=== PATIENT | male | born 1950 | race Caucasian/White ===

== ENCOUNTER → 2020-08-06 09:51 | Outpatient (BNVA) | payer MEDICARE, SELFPAY | PROVIDERS: Family Provider Family Medicine; Visit Provider Family Medicine | DX: E11.65 Type 2 diabetes mellitus with hyperglycemia (principal); Z23 Encounter for immunization; E11.9 Type 2 diabetes mellitus without complications; Z12.5 Encounter for screening for malignant neoplasm of prostate | CPT/HCPCS: 80061; 83036; 84439; 84443; 85025; G0103 ==

== ENCOUNTER → 2020-12-23 11:00 | Outpatient (BNVA) | payer MEDICARE, SELFPAY | PROVIDERS: Family Provider Family Medicine; Visit Provider Family Medicine | DX: I48.91 Unspecified atrial fibrillation (principal) | CPT/HCPCS: 71046 ==

== ENCOUNTER 2020-12-23 12:54 | Inpatient (IN) | payer MEDICARE, SELFPAY ==
[2020-12-23] VITALS (20 sets, daily range): BP systolic 120–163; BP diastolic 71–119; PULSE 81–126; RESP 16–27; TEMP 36.6–37.1; O2SAT 92–94; BMI 33.0
--- NOTE | 2020-12-23 13:22 | ECG_ITS ---
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 Measurements Intervals [place] Rate: 134 P: [place]: QRS: 59 QRSD: 82 T: 14 QT: 302 QTc: 452 Interpretive Statements ATRIAL FIBRILLATION WITH RAPID VENTRICULAR RESPONSE WITH ABERRANT CONDUCTION OR VENTRICULAR PREMATURE COMPLEXES NONSPECIFIC T-WAVE ABNORMALITY ABNORMAL RHYTHM ECG No previous ECG available for comparison Electronically Signed On 12-23-2020 23:58:28 CDT by Keenan Schroeder M.D. [id number]
--- NOTE | 2020-12-23 13:35 | W.ED.ARRPALP ---
HPI - Arrhythmia/Palpitations General: Chief Complaint: Arrhythmia/Palpitations Stated Complaint: SENT BY DR LEWIS - PT SPOUSE STATES AFIB Time Seen by Provider: 12/23/20 13:17 History of Present Illness: HPI narrative: 70-year-old male presents emergency room from his primary care doctor's office with new onset atrial fibrillation. He has been a little short of breath with activity the last couple of weeks but had not noticed any rapid heart rates palpitations or chest pain. MD complaint: atrial fibrillation Onset (ago): week(s) (3) Associated symptoms: Deny anxiety, cough, diaphoresis, muscle cramps, nausea, paresthesias, pre-syncope, sense of impending doom, short of breath, syncope or vomiting Review of Systems Const: Denies: diaphoresis ENMT: Denies: throat pain, ear or mastoid pain, nasal discharge or nasal congestion Card: Denies: syncope or pre-syncope Resp: Denies: dyspnea, productive cough or non-productive cough GI: Denies: nausea or vomiting : Denies: flank pain, dysuria, urinary frequency or urinary urgency Musc: Denies: muscle cramps Skin/Breast: Denies: rash or pruritus Psych: Denies: anxiety PFSH ED PFSH: Medical History (Updated 12/23/20 @ 20:38 by Steve Medrano MD) Diabetes mellitus Social History Smoking and tobacco status: former smoker Quit status (tobacco): has quit using tobacco Year quit tobacco: age 37 Alcohol intake: never Physical Exam Const: COMMON NORMALS: no acute distress GENERAL APPEARANCE: cooperative and comfortable ORIENTATION/CONSCIOUSNESS: Yes awake, Yes oriented to person, Yes oriented to place and Yes oriented to time HENMT: COMMON NORMALS: normocephalic, atraumatic and hearing grossly normal bilaterally HEAD & SCALP: normocephalic and atraumatic Neck/C-Spine: COMMON NORMALS: no JVD Resp: COMMON NORMALS: normal respiratory effort, No retractions, No use of accessory muscles and clear to auscultation bilaterally AUSCULTATION: clear to auscultation bilaterally Cardio: COMMON NORMALS: no JVD and No murmurs present (Cardio) RATE: tachycardic RHYTHM: abnormal rhythm irregularly irregular GI: COMMON NORMALS: Soft to palpation and No hepatosplenomegaly present AUSCULTATION: Yes normoactive bowel sounds PALPATION: Yes Soft to palpation, No Tenderness to palpation present (GI), No Guarding due to palpation present (GI) and Yes No hepatosplenomegaly present Extremity: COMMON NORMALS: normal to inspection, capillary refill normal, no clubbing, cyanosis or edema, no calf tenderness and no pedal edema Neuro: SENSORIUM/ORIENTATION: Yes oriented to person, Yes oriented to place and Yes oriented to time Skin: COMMON NORMALS: no rashes or lesions noted GENERAL SKIN EXAM: no rashes or lesions noted Course Vital Signs: Vital signs: Vital Signs Temperature 98.0 F 12/24/20 07:16 Pulse Rate 99 12/24/20 07:16 Respiratory Rate 24 H 12/24/20 07:16 Blood Pressure 149/98 12/24/20 07:16 Pulse Oximetry 92 12/24/20 07:16 MDM - Arrhythmia/Palpitations MDM Narrative: Medical decision making narrative: New onset A. fib. He is responsive to Cardizem. Will admit for rate control. He is currently on diltiazem but has not converted yet. Will need an echo and will need to be evaluated for anticoagulation. Cussed with Dr. Medrano orders are written. Admitted to CSU. Lab Data: Labs: Lab Results 12/23/20 Range/Units 13:33 Troponin T Baselin e 26 H (0-15) ng/L Discharge Plan Discharge Patient Disposition: Admitted As Inpatient Admit Provider: Steve Medrano Clinical Impression: Atrial fibrillation with rapid ventricular response Condition: Stable Coding Level of Care Code ED Clinical Trials Manager for Chg Fwd Exam Comprehensive
[2020-12-23 14:07] LABS: Troponin(5th) Baseline 26 ng/L (0-15)
--- NOTE | 2020-12-23 15:22 | ECG_ITS ---
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 Measurements Intervals [place] Rate: 88 P: ID: QRS: 29 QRSD: 84 T: 54 QT: 366 QTc: 443 Interpretive Statements ATRIAL FIBRILLATION NONSPECIFIC T-WAVE ABNORMALITY ABNORMAL RHYTHM ECG Compared to ECG 12/23/2020 13:05:54 Aberrant conduction of supraventricular beat(s) no longer present Ventricular premature complex(es) no longer present T-wave abnormality still present Electronically Signed On 12-24-2020 0:09:19 CDT by Keenan Schroeder M.D. [id number]
[2020-12-23 16:02] LABS: Troponin 5 2HR 24.28 ng/L (0-15)
[2020-12-23 16:04] LABS: Troponin 5 2HR Delta -1.72 ABS# (0-10)
--- NOTE | 2020-12-23 16:09 | PM.HP ---
Providers/Chief Complaint Admitting Physician: Steve Medrano MD Primary Care Provider: Trevin Lewis DO Chief Complaint: SENT BY DR LEWIS - PT SPOUSE STATES AFIB History of Present Illness Kerwin Leslie is a 70 year old male with PMH of HTN and DM came in with c/o worsening fatigue as well as SOB going on for about 2 weeks.SOB has got progressively worsened particularly with exertion.But he deny any orthopnea and PND. He denied any cough,fever,palpitation,nausea,vomiting chest pain,headache.He was at his pcp office today where they ended up doing an ekg,which showed new onset A,fib with RVR and thereafter he was sent to the ER.Upon arrival in the ER he was worked up for above mentioned complain. Pertinent work up : EKG : A. fib with RVR, NONSPECIFIC T-WAVE ABNORMALITY, Rate : 134 Xray chest : Cardiomegaly and bilateral pleural effusions Troponins :Baseline Troponin : 26, 2H T: 24.28 Delta 2h : -1.78 , 6H : 25.59 , Delta 6H : -0.41 TSH : FREE T4 : ECA Medications : Cardizem 20 mg I.V * 1 Dose , Cardizem Drip , Lovenox 120 mg sc * 1 Dose. Review of Systems Const: Denies: fever(s), chills, body aches, change in appetite or diaphoresis Card: Denies: palpitations, edema, swelling of feet/ankles or orthopnea Resp: Denies: productive cough, wheezing or pain on inspiration GI: Denies: abdominal pain, nausea, vomiting, diarrhea or constipation : Denies: flank pain or difficulty urinating Musc: Denies: back pain, extremity pain or extremity swelling Neuro: Denies: headache(s), difficulty walking or confusion Medications/Allergies Home Medications Medication Instructions Recorded Confirmed Last Taken Type amlodipine 10 mg PO DAILY@12/23/20 12/23/20 12/23/20 History glipizide 5 mg PO BID@12/23/20 12/23/20 12/23/20 History losartan-hydrochlorothiazide 1 tab PO DAILY@12/23/20 12/23/20 12/23/20 History metformin 1,000 mg PO BID@12/23/20 12/23/20 12/23/20 History omeprazole 20 mg PO DAILY@05 12/23/20 12/23/20 12/23/20 History Allergies Allergy/AdvReac Type Severity Reaction Status Date / Time No Known Allergies Allergy Verified 12/23/20 10:23 PFSH Acute PFSH: Medical History (Updated 12/23/20 @ 20:38 by Steve Medrano MD) Diabetes mellitus Social History Smoking and tobacco status: former smoker Quit status (tobacco): has quit using tobacco Year quit tobacco: age 37 Alcohol intake: never Vitals/I&O/Wt Last Vital Signs Temp 98.7 F 12/23/20 12:56 Pulse 115 H 12/23/20 15:38 Resp 20 H 12/23/20 15:38 BP 159/119 12/23/20 15:38 Pulse Ox 93 12/23/20 15:38 12/23/20 12/23/20 12/23/20 06:59 14:59 22:59 Intake Total 10.458 / 10.458 Balance 10.458 / 10.458 Weight last 48 hrs Weight 119.748 kg Physical Exam Const: COMMON NORMALS: patient oriented x3 HENMT: COMMON NORMALS: normocephalic and atraumatic HEAD & SCALP: normocephalic and atraumatic Resp: COMMON NORMALS: normal respiratory effort and clear to auscultation bilaterally EFFORT & INSPECTION: Yes symmetric chest movement AUSCULTATION: clear to auscultation bilaterally Cardio: PERIPHERAL PULSES: Peripheral pulses 2+ throughout OTHER: Irregularly Irregular, S1S2 is of variable intensity. No MRG. GI: COMMON NORMALS: Normal to inspection, nondistended, normoactive bowel sounds present, Soft to palpation, non-tender, No hepatosplenomegaly present and no masses AUSCULTATION: Yes normoactive bowel sounds PALPATION: Yes Soft to palpation and Yes No hepatosplenomegaly present RECTAL EXAM: Yes deferred Extremity: COMMON NORMALS: no clubbing, cyanosis or edema and no pedal edema NARRATIVE EXTREMITY EXAM: Varicose Vein Present Neuro: COMMON NORMALS: patient oriented x3 A&P Assessment and plan (1) Atrial fibrillation with rapid ventricular response: 2D Echo Tele TSH Lipid panel Currently On Cardizem Drip. Cardizem 30 mg po q6 h daily Lovenox 120 mg sc q12h Daily Status: Acute (2) Elevated troponin: Likely Type II M.I 2/2 to A.Fib with RVR 2D Echo Status: Acute (3) Congestive heart failure (CHF): Status: Acute (4) Diabetes mellitus: LDSSI FSG Hba1c Status: Acute (5) Hypertension: Status: Acute Additional A&P Information Code Status :Full Code DVT PPX :On Lovenox Disposition :Home Attestations Medical Necessity Statement*: Patient needs to be in hospital for the management of A.fib with RVR.Anticipated LOS greater then 2 midnights. Coding Level of Care Code Acute Journeyman Glazier for Chg Fwd Exam Detailed Diagnoses Atrial fibrillation with rapid ventricular response I48.91 Elevated troponin R77.8 Congestive heart failure (CHF) I50.9 Diabetes mellitus E11.9 Hypertension I10
[2020-12-23] MEDS: enoxaparin 120 mg/0.8 mL Syringe SUBCUT (16:29)
[2020-12-23 16:49] LABS: Glucose Point of Care 177 mg/dL (70-110)
[2020-12-23] MEDS: dilTIAZem 30 mg Tablet PO ×2 (17:05→21:52)
--- NOTE | 2020-12-23 19:22 | ECG_ITS ---
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 Measurements Intervals [place] Rate: 82 P: [place]: QRS: 17 QRSD: 87 T: 43 QT: 378 QTc: 443 Interpretive Statements ATRIAL FIBRILLATION ABNORMAL RHYTHM ECG Compared to ECG 12/23/2020 15:27:02 T-wave abnormality no longer present Electronically Signed On 12-25-2020 7:57:37 CDT by Cindy Arredondo M.D. [id number]
[2020-12-23 20:01] LABS: Troponin 5 6HR 25.59 ng/L (0-15); Troponin 5 6HR Delta -0.41 ng/L (0-12)
[2020-12-23 20:47] LABS: NT Pro B Type Natriuretic Pept 774 pg/mL (0-125)
[2020-12-23 20:53] LABS: Glucose Point of Care 160 mg/dL (70-110)
[2020-12-24] VITALS (10 sets, daily range): BP systolic 109–162; BP diastolic 80–108; PULSE 82–132; RESP 18–25; TEMP 36.3–36.9; O2SAT 90–95
[2020-12-24] MEDS: dilTIAZem 30 mg Tablet PO ×3 (04:51→10:28)
[2020-12-24] MEDS: pantoprazole DR 40 mg Tablet PO (04:51)
[2020-12-24] MEDS: enoxaparin 120 mg/0.8 mL Syringe SUBCUT ×2 (04:51→16:58)
[2020-12-24 05:00] LABS: Basophils % 0.4 %; Eosinophils # 0.3 10^3/uL (0.0-0.8); Eosinophils % 4.4 %; Hematocrit 39.2 % (42.0-52.0); Hemoglobin 12.8 g/dL (11.7-16.6); Lymphocytes # 1.9 10^3/uL (0.8-4.8); Lymphocytes % 32.8 %; Mean Corpuscular HGB Conc 32.7 g/dL (30.0-36.0); Mean Corpuscular Hemoglobin 28.4 pg (28.0-34.0); Mean Corpuscular Volume 87.1 fL (80-94); Mean Platelet Volume 10.6 fL (7.4-10.4); Monocytes # 0.7 10^3/uL (0.2-0.9); Monocytes % 12.2 %; Neutrophils # 2.83 10^3/uL (1.8-7.7); Neutrophils % 49.8 %; Nucleated Red Blood Cells % 0 %; Platelet Count 237 10^3/cmm (130-400); Red Cell Distribution Width 14.2 % (12.1-15.1); White Blood Count 5.7 10^3/uL (4.0-10.0)
--- NOTE | 2020-12-24 05:00 | USCV_ITS ---
Kerwin Leslie Age: 70 Gender: M : 1950 Exam Date: 12/24/2020 05:27 Ordering Phys: Yair Ludwig DO Technologist: Mita Morris Exam Location: [facility] [place] Indication: AFIB BP: 143 / 89 HR: 79 Rhythm: Atrial fibrillation Technical Quality: Adequate MEASUREMENTS (Male / Female) Normal Values 2D ECHO LV Diastolic Diameter PLAX 4.3 cm 4.2 - 5.9 / 3.9 - 5.3 cm LV Systolic Diameter PLAX 3.7 cm LV Chamber Size 3.7 cm IVS Diastolic Thickness 1.4 cm 0.6 - 1.0 / 0.6 - 0.9 cm IVS Systolic Thickness 1.6 cm LVPW Diastolic Thickness 1.6 cm 0.6 - 1.0 / 0.6 - 0.9 cm LVPW Systolic Thickness 1.7 cm RV Chamber Size 3.5 cm LVOT Diameter 2.0 cm LV Ejection Fraction 2D Teich 32.9 % LV Ejection Fraction MOD 2C 52.3 % LV Ejection Fraction 2C AL 56.5 % LA Diameter 4.3 cm LA Width 3.9 cm LA Height 6.5 cm RA Width 3.6 cm RA Height 4.2 cm Aorta at Sinotubular Diameter 3.8 cm M-MODE LV Diastolic Diameter MM 5.2 cm 4.2 - 5.9 / 3.9 - 5.3 cm LV Systolic Diameter MM 3.8 cm LV Ejection Fraction MM Teich 51.0 % IVS Diastolic Thickness MM 1.2 cm 0.6 - 1.0 / 0.6 - 0.9 cm IVS Systolic Thickness MM 1.6 cm LVPW Diastolic Thickness MM 1.2 cm 0.6 - 1.0 / 0.6 - 0.9 cm LVPW Systolic Thickness MM 1.5 cm RV Diastolic Diameter MM 2.6 cm Aortic Annulus Diameter 4.0 cm LA Ao Ratio MM 1.2 MV E Point Septal Separation 1.0 cm DOPPLER AV Peak Velocity 115.6 cm/s LVOT Peak Velocity 76.7 cm/s AV Area Cont Eq vti 2.0 cm squared AV Area Cont Eq pk 2.1 cm squared MV Area PHT 4.6 cm squared Mitral E to A Ratio 68.2 MV E' Velocity 66.6 cm/s Mitral E to MV E' Ratio 11.9 Mitral E to LV E' Lateral Ratio 11.7 Mitral E to LV E' Septal Ratio 12.2 TR Peak Velocity 187.6 cm/s TR Peak Gradient 14.1 mmHg TR Mean Velocity 134.7 cm/s TR Mean Gradient 8.1 mmHg TR Velocity Time Integral 40.2 cm TV Peak E Velocity 71.9 cm/s Right Atrial Pressure 3.0 mmHg Pulmonary Artery Systolic Pressu 17.1 mmHg PV Peak Velocity 75.0 cm/s RV Acceleration Time 0.1 s RV Ejection Time 0.3 s RV AcT/ET 0.3 FINDINGS Left Ventricle Normal left ventricular cavity size. Normal left ventricular wall thickness. Mildly decreased left ventricular systolic function. Left ventricular ejection fraction is estimated at 45- 50 %. Mild global hypokinesis. Rhythm precludes evaluation of diastolic function. Right Ventricle Normal right ventricular size and systolic function. Right ventricular systolic pressure 17.1 mmHg. Right Atrium Normal right atrial size. Left Atrium Mildly increased left atrial size. Mitral Valve Mild mitral annular calcification. Mildly thickened mitral valve. No mitral valve stenosis. Mild mitral valve regurgitation. Aortic Valve Mildly thickened trileaflet aortic valve. No aortic valve stenosis. No aortic valve regurgitation. Tricuspid Valve Structurally normal tricuspid valve. No tricuspid valve stenosis. Trace to mild tricuspid valve regurgitation. Pulmonic Valve Pulmonic valve not well visualized. No pulmonary valve regurgitation. Pericardium No pericardial effusion. Aorta Normal-sized aortic root. Dilated inferior vena cava. Echogenic structure noted in inferior vena cava seems to be artifactual. CONCLUSIONS 1. Normal left ventricular cavity size, wall thickness. Mildly decreased left ventricular systolic function. Left ventricular ejection fraction is estimated at 45-50 %. Mild global hypokinesis. 2. Normal right ventricular size and systolic function. 3. Mild mitral valve regurgitation. 4. No prior similar studies to compare Cindy Arredondo MD (Electronically Signed) Final Date: 24 December 2020 17:49 S
[2020-12-24 05:24] LABS: NT Pro B Type Natriuretic Pept 629 pg/mL (0-125); Procalcitonin 0.04 ng/mL (0-0.5)
[2020-12-24 05:25] LABS: Magnesium 1.4 mg/dL (1.7-2.3)
[2020-12-24 05:26] LABS: Alanine Aminotransferase 51 U/L (0-41); Albumin Level 3.9 g/dL (3.5-5.2); Alkaline Phosphatase 28 IU/L (40-130); Anion Gap 15.5 (5-19); Aspartate Amino Transferase 26 U/L (0-40); Blood Urea Nitrogen 15 mg/dL (8-23); Calcium 9.2 mg/dL (8.5-10.5); Carbon Dioxide 24 mmol/L (22-29); Chloride 103 mmol/L (98-107); Creatinine Clr Calc Pharmacy 116.4018; Glucose 163 mg/dL (65-115); Osmolality Calculated 292 mOsm/kg (285-295); Potassium 3.5 mmol/L (3.5-5.1); Sodium 139 mmol/L (136-145); Total Bilirubin 0.9 mg/dL (0.15-1.2); Total Protein 5.9 g/dL (6.6-8.7)
[2020-12-24 06:13] LABS: Estmated Average Glucose 146; Hemoglobin A1C 6.7 % (4.0-6.0)
[2020-12-24 06:38] LABS: Glucose Point of Care 165 mg/dL (70-110)
--- NOTE | 2020-12-24 08:55 | PC.CHAP ---
Pastoral Care Encounter/Spiritual Assessment Type of Contact [] Declined president and chief operating officer visit [] Patient/Family/Request visit [] Outpatient visit [] Follow-up visit [] Physician referral [] Code/Alert [x] Routine visit [] Staff referral [] Actively dying [] Patient sleeping [x] Family support [] [] Out of room [] Palliative care [] [] Receiving care in room [] Pre-surgical visit [] Trauma [] Long length of stay [] ICU visit [] Other: Relational/Emotional Strength [] Patient feels connected with others/family/visitors/staff [] Distress [] Loneliness/isolation [] Abandonment Spirituality of Patient [x] Person of Faina [] Attends Amish of their Faina [] Believes in Prayer [] Reads Bible or Jainism materials [] There are Spiritual issues to be addressed Helpdesk Technician Interventions [x] Prayer [x] Active listening [x] Non-anxious presence [x] Spiritual/emotional support [] Crisis/trauma care [] Spiritual counseling [] Bereavement support [] Provided bereavement packet [] Provided Bible/devotional materials [] Provided toy/stuffed animal, coloring book to patient or family member [] Provided Communion [] Anointing/Debary [] Salvation [x] Completed spiritual assessment [] Other: Impact on Illness or Injury [] Angry [] Fearful [] Anxious [] Often cries [] Exhaustion [] Unable to work [] Unable to attend uatsdin [] Unable to walk/stand [] Unable to read [] Unable to drive [] Unable to eat/drink [] Unable to sleep [] Unable to be with family [] Patient intubated [] Other: Summary patient states issue of afib being addressed.. spouse stayed the night setting in a chair....jeanie, eager to return home. Time spent with patient 15 min
[2020-12-24] MEDS: FUROsemide 10 mg/mL SDV 4mL 40 MG IVP ×2 (09:20→17:45)
[2020-12-24] MEDS: hydroCHLOROthiazide 25 mg Tablet PO (09:24)
[2020-12-24] MEDS: losartan 50 mg Tablet 100 MG PO (09:24)
[2020-12-24] MEDS: pneumococcal (23 valent) SDV 0.5 mL IM (09:26)
--- NOTE | 2020-12-24 09:30 | PC.NURSE ---
Verbal order from Dr. Medrano to keily Cardizem gtt. Give an additional 30 mg PO Cardizem one time, increase scheduled dose to 60 mg. RBVO
--- NOTE | 2020-12-24 10:09 | P.CONIM_ITS ---
Providers/Reason For Consult Consulting Physican/Specialty*: Dr. Arredondo, cardiology Reason for Consult*: Atrial fibrillation with rapid ventricle response, congestive heart failure Attending Physician: Steve Medrano MD Primary Care Provider: Trevin Veliz DO History of Present Illness History of Present Illness Kerwin Leslie is a 70 year old male with past medical history of hypertension, diabetes mellitus type 2 on oral hypoglycemic agents and obesity presented for evaluation of worsening shortness of breath for last 2 to 3 weeks. 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 He denies having any leg swelling orthopnea or PND. No fever cough URI or UTI-like symptoms. Patient denies having any chest discomfort. Patient is a former smoker and has family history of CAD and older brother with three-vessel bypass in atrial fibrillation at age 74 and sudden in father in his 60s. On admission he received IV Lasix for pulmonary congestion and was started on Cardizem drip. At the time of evaluation patient denies having any episodes. Heart rate 100-110's. Patient was accompanied by his and expresses the desire to go home. Review of Systems General: Reports: 10 or more systems reviewed and unremarkable except in HPI and below Const: Denies: fever(s), chills, body aches, change in appetite or diaphoresis ENMT: Denies: epistaxis Card: Denies: palpitations, edema, swelling of feet/ankles or orthopnea Resp: Denies: productive cough, wheezing or pain on inspiration GI: Denies: abdominal pain, nausea, vomiting, diarrhea or constipation : Denies: flank pain or difficulty urinating Musc: Denies: back pain, extremity pain or extremity swelling Neuro: Denies: headache(s), difficulty walking or confusion Endo: Reports: tired all the time Eloy/Lymph: Denies: petechiae or purpura Meds/Allergies Home Medications and Allergies Home Medications Medication Instructions Recorded Confirmed Last Taken Type amlodipine 10 mg PO DAILY@12/23/20 12/23/20 12/23/20 History glipizide 5 mg PO BID@,12/23/20 12/23/20 12/23/20 History losartan-hydrochlorothiazide 1 tab PO DAILY@12/23/20 12/23/20 12/23/20 History metformin 1,000 mg PO BID@,12/23/20 12/23/20 12/23/20 History omeprazole 20 mg PO DAILY@05 12/23/20 12/23/20 12/23/20 History Allergies Allergy/AdvReac Type Severity Reaction Status Date / Time No Known Allergies Allergy Verified 12/23/20 10:23 Current Medications Current Medications Generic Name Dose Route Start Last Admin Trade Name Freq PRN Reason Stop Dose Admin Enoxaparin Sodium 120 mg 12/24/20 05:00 12/24/20 04:51 Enoxaparin 120 Mg/0.8 Ml Syringe SUBCUT 120 mg Q12H LIZ Administration Furosemide 40 mg 12/24/20 08:00 12/24/20 09:20 Furosemide 10 Mg/Ml Sdv 4ml IVP 40 mg Q24H LIZ Administration Hydrochlorothiazide 25 mg 12/24/20 09:00 12/24/20 09:24 Hydrochlorothiazide 25 Mg Tablet PO 25 mg DAILY LIZ Administration Diltiazem HCl 125 mg/ Sodium 125 mls @ 0 mls/hr 12/23/20 13:45 12/24/20 09:19 Chloride IV Infused .Q0M LIZ Titration Protocol Per Protocol Insulin Aspart 0 unit 12/23/20 18:00 12/24/20 09:24 Insulin Aspart 100 Unit/1 Ml SUBCUT 2 unit WM&BEDTIME LIZ Administration Protocol Losartan Potassium 100 mg 12/24/20 09:00 12/24/20 09:24 Losartan 50 Mg Tablet PO 100 mg DAILY LIZ Administration Pantoprazole Sodium 40 mg 12/24/20 05:00 12/24/20 04:[address] 40 Mg Tablet PO 40 mg DAILY@05 LIZ Administration PFSH Acute PFSH: Medical History Diabetes mellitus Surgical History (Updated 12/24/20 @ 18:24 by Cindy Arredondo MD) History of ear surgery right Previous back surgery lower Social History Smoking and tobacco status: former smoker Quit status (tobacco): has quit using tobacco Year quit tobacco: age 37 Alcohol intake: never Vitals/I&O/Wt Last Vital Signs Temp 98.0 F 12/24/20 07:16 Pulse 99 12/24/20 07:16 Resp 24 H 12/24/20 07:16 BP 125/97 12/24/20 09:24 Pulse Ox 92 12/24/20 07:16 12/23/20 12/24/20 12/24/20 22:59 06:59 14:59 Intake Total 518.125 / 518.125 150 / 668.125 312.946 / 312.946 Balance 518.125 / 518.125 150 / 668.125 312.946 / 312.946 Weight last 48 hrs Weight 259 lb Weight 264 lb Physical Exam Narrative: EXAM NARRATIVE: GENERAL: Obese man lying in bed in no acute distress HEENT: Pupils equal round reactive to light. No pallor or icterus. NECK: central trachea, No JVD, No abdominojugular reflex. No carotid bruit. CARDIOVASCULAR SYSTEM: S1-S2 irregular. Tachycardia present . No murmur rubs or gallops. RESPIRATORY SYSTEM: Chest clear to auscultation. No wheezes rhonchi or rubs heard. No use of accessory muscles. ABDOMEN: Soft, nontender and nondistended. Normal bowel sounds present. EXTREMITIES: No cyanosis or clubbing. No right-sidededema. Left foot and ankle trace edema and mild varicosities, 2+ dorsalis pedis and posterior tibial bilaterally MOLDING FITTER: Patient is alert oriented ?3. No focal neurological deficits. Cranial nerves intact. SKIN: Normal turgor and temperature. No breakdown, rash or nail changes noted. PSYCH: Normal insight and judgment. A&P Assessment and plan (1) Dyspnea on exertion: Dyspnea on exertion in setting of mildly decompensated CHF and A. fib with RVR -Multiple CAD risk factor of age, sex, hypertension, diabetes. -May consider stress testing before discharge. Status: Acute (2) Congestive heart failure (CHF): Acute heart failure with midrange EF -Another dose of Lasix 40 mg IV x1 today, change to p.o. Lasix tomorrow Status: Acute Qualifiers: Heart failure chronicity: acute Heart failure type: unspecified Qualified Code(s): I50.9 - Heart failure, unspecified (3) Atrial fibrillation: A. fib with RVR. -Start on metoprolol tartrate 100 twice daily, currently on therapeutic Lovenox. -Mildly decreased LV function with ejection fraction estimated at 45 to 50%. Status: Acute Qualifiers: Atrial fibrillation type: persistent (not longstanding) Qualified Code(s): I48.19 - Other persistent atrial fibrillation (4) Hypertension: Status: Acute Qualifiers: Hypertension type: essential hypertension Qualified Code(s): I10 - Essential (primary) hypertension (5) Elevated troponin: Status: Acute (6) Diabetes mellitus: Status: Acute Qualifiers: Diabetes mellitus type: type 2 Diabetes mellitus assisted insulin use: without assisted use Diabetes mellitus complication status: without complication Qualified Code(s): E11.9 - Type 2 diabetes mellitus without complications Additional A&P Information Hypomagnesemia Thank you for allowing me to participate in patient's care. Please feel free to call with questions or concerns. Consult Attestations Medical Necessity Statement: Needs hospital stay for A. fib with RVR Time Spent in Patient Care: Greater than 35 minutes (>than 50% of time spent in counselling and/or direct pt care on unit) . Coding Level of Care Code Acute Environment Coordinator for Richag Fwd Diagnoses Dyspnea on exertion R06.00 Congestive heart failure (CHF) I50.9 Heart failure chronicity: acute Heart failure type: unspecified Atrial fibrillation I48.19 Atrial fibrillation type: persistent (not longstanding) Hypertension I10 Hypertension type: essential hypertension Elevated troponin R77.8 Diabetes mellitus E11.9 Diabetes mellitus type: type 2 Diabetes mellitus assisted insulin use: without middle or intermediate school principal use Diabetes mellitus complication status: without complication
--- NOTE | 2020-12-24 10:26 | P.PN_ITS ---
Subjective Subjective: Interval history: Patient was seen and examined this morning. Denies any chest pain, shortness of breath. Continues to be in A. fib with better rate control. Vitals/I&O/Wt Last Vital Signs Temp 98.0 F 12/24/20 07:16 Pulse 99 12/24/20 07:16 Resp 24 H 12/24/20 07:16 BP 125/97 12/24/20 09:24 Pulse Ox 92 12/24/20 07:16 12/23/20 12/24/20 12/24/20 22:59 06:59 14:59 Intake Total 518.125 / 518.125 150 / 668.125 312.946 / 312.946 Balance 518.125 / 518.125 150 / 668.125 312.946 / 312.946 Weight last 48 hrs Weight 117.48 kg Weight 119.748 kg Physical Exam Const: COMMON NORMALS: patient oriented x3 HENMT: COMMON NORMALS: normocephalic and atraumatic HEAD & SCALP: normocephalic and atraumatic Resp: COMMON NORMALS: normal respiratory effort and clear to auscultation bilaterally EFFORT & INSPECTION: Yes symmetric chest movement AUSCULTATION: clear to auscultation bilaterally Cardio: COMMON NORMALS: Peripheral pulses 2+ throughout PERIPHERAL PULSES: Peripheral pulses 2+ throughout OTHER: Irregularly Irregular, S1S2 is of variable intensity. No MRG. GI: COMMON NORMALS: Normal to inspection, nondistended, normoactive bowel sounds present, Soft to palpation, non-tender, No hepatosplenomegaly present and no masses AUSCULTATION: Yes normoactive bowel sounds PALPATION: Yes Soft to palpation and Yes No hepatosplenomegaly present RECTAL EXAM: Yes deferred Extremity: COMMON NORMALS: no clubbing, cyanosis or edema and no pedal edema NARRATIVE EXTREMITY EXAM: Varicose Vein Present Neuro: COMMON NORMALS: patient oriented x3 Data : 12/24/20 04:45 12/24/20 04:45 A&P Assessment and plan (1) Atrial fibrillation with rapid ventricular response: 2D Echo: Normal left ventricular cavity size, wall thickness.Mildly decreased left ventricular systolic function. Left ventricular ejection fraction is estimated at 45-50 %. Mild global hypokinesis.Normal right ventricular size and systolic function. Mild mitral valve regurgitation. Tele: TSH Lipid panel Initially he was On Cardizem Drip. Currently on Cardizem 60 mg po q6 h daily. On Metoprolol T 100 MG Q12 H Daily as he has HFrEF Lovenox 120 mg sc q12h Daily, will switch to eliquis on discharge. Appreciate Cardiology consult Status: Acute (2) Elevated troponin: Likely Type II M.I 2/2 to A.Fib with RVR 2D Echo Status: Acute (3) Congestive heart failure (CHF): HFrEF Continue Lasix 40 mg PO daily Status: Acute (4) Diabetes mellitus: LDSSI FSG Hba1c :6.7 Status: Acute (5) Hypertension: Status: Acute Additional A&P Information Code Status :Full Code DVT PPX :On Lovenox Disposition :Home Attestations Medical Necessity Statement*: Patient needs to be in hospital for the management of A.fib with RVR Coding Level of Care Code Acute Concrete Block Plant Supervisor for Chg Fwd Exam Detailed Diagnoses Atrial fibrillation with rapid ventricular response I48.91 Elevated troponin R77.8 Congestive heart failure (CHF) I50.9 Diabetes mellitus E11.9 Hypertension I10
[2020-12-24] MEDS: magnesium sulfate premix 2 GM/50 ML PIGGYBACK IV (10:28)
[2020-12-24 11:39] LABS: Glucose Point of Care 140 mg/dL (70-110)
[2020-12-24 16:52] LABS: Glucose Point of Care 160 mg/dL (70-110)
[2020-12-24] MEDS: dilTIAZem 60 mg Tablet PO (16:58)
[2020-12-24] MEDS: potassium chloride ER 20 mEq Tablet PO (17:47)
--- NOTE | 2020-12-24 18:29 | ECG_ITS ---
[facility] Test Date: 2020-12-25 Pat Name: Kerwin Leslie Department: Room: 107 Gender: Male Barrel Driller: : 1950 Requested By: Cindy Arredondo Order Number: [id number] Konrad MD: Cindy Arredondo M.D. Interpretive Statements NAME OF STUDY: LEXISCAN SESTAMIBI STRESS TEST INDICATION: Dyspnea on Exertion; A Fib PROCEDURE: At the baseline, the blood pressure was 116/94 mmHg, oxygen saturation 96% with a heart rate of 113 bpm. The electrocardiogram showed atrial fibrillation with rapid ventricular response at 113 bpm with intermittent aberrantly conducted beats/PVCs. Possible old anteroseptal infarct. Nonspecific ST-T wave changes. The Lexiscan was infused over a period of 20 seconds. A total of 0.4 milligrams of Lexiscan was infused. The stress phase was continued for a total of 5 minutes. Heart rate at the end of the stress phase was 103 bpm, oxygen saturation 91% with a blood pressure of 209/100 mmHg. The EKG at the peak infusion revealed atrial fibrillation with rapid regular response with no significant ST-T wave changes. Sestamibi was injected 20 seconds after the Lexiscan infusion. Blood pressure at the end of the recovery phase was 122/72 mmHg, oxygen saturation 90% with a heart rate of 107 beats per minute. CONCLUSION: 1. No significant EKG changes with the LexiScan infusion. 2. No LexiScan induced chest pain or cardiac arrhythmia. 3. Normal blood pressure and heart rate response. 4. Sestamibi/sestamibi perfusion scan pending; see separate report. Electronically Signed On 12-25-2020 16:30:22 CDT by Cindy Arredondo M.D. [id number]
[2020-12-24 20:47] LABS: Glucose Point of Care 189 mg/dL (70-110)
[2020-12-24] MEDS: metoprolol tartrate 50 mg Tablet 100 MG PO (20:50)
[2020-12-25] VITALS (12 sets, daily range): BP systolic 116–143; BP diastolic 72–106; PULSE 92–130; RESP 17–26; TEMP 36.2–36.8; O2SAT 90–93
[2020-12-25 04:52] LABS: Basophils % 0.5 %; Eosinophils # 0.3 10^3/uL (0.0-0.8); Eosinophils % 4.5 %; Hematocrit 42.3 % (42.0-52.0); Lymphocytes % 31.9 %; Mean Corpuscular HGB Conc 33.1 g/dL (30.0-36.0); Mean Corpuscular Hemoglobin 28.9 pg (28.0-34.0); Mean Corpuscular Volume 87.4 fL (80-94); Monocytes # 0.8 10^3/uL (0.2-0.9); Monocytes % 12.1 %; Neutrophils # 3.18 10^3/uL (1.8-7.7); Neutrophils % 50.8 %; Nucleated Red Blood Cells % 0 %; Platelet Count 252 10^3/cmm (130-400); Red Blood Count 4.84 10^6/uL (4.1-5.3); Red Cell Distribution Width 14.1 % (12.1-15.1); White Blood Count 6.3 10^3/uL (4.0-10.0)
[2020-12-25 05:06] LABS: Alanine Aminotransferase 61 U/L (0-41); Albumin Level 3.9 g/dL (3.5-5.2); Alkaline Phosphatase 32 IU/L (40-130); Anion Gap 13.3 (5-19); Aspartate Amino Transferase 29 U/L (0-40); Blood Urea Nitrogen 16 mg/dL (8-23); Calcium 8.7 mg/dL (8.5-10.5); Carbon Dioxide 28 mmol/L (22-29); Chloride 103 mmol/L (98-107); Creatinine Clr Calc Pharmacy 92.4362; Globulin 2.6 g/dL (1.3-4.6); Glucose 154 mg/dL (65-115); Osmolality Calculated 296 mOsm/kg (285-295); Potassium 3.3 mmol/L (3.5-5.1); Sodium 141 mmol/L (136-145); Total Bilirubin 0.6 mg/dL (0.15-1.2); Total Protein 6.5 g/dL (6.6-8.7)
[2020-12-25 05:15] LABS: Free T4 Free Thyroxine 1.28 ng/dL (0.82-1.77)
[2020-12-25 05:16] LABS: Thyroid Stimulating Hormone 3.32 uIU/mL (0.27-4.20)
[2020-12-25] MEDS: enoxaparin 120 mg/0.8 mL Syringe SUBCUT ×2 (05:43→17:36)
[2020-12-25] MEDS: pantoprazole DR 40 mg Tablet PO (05:43)
[2020-12-25 06:37] LABS: Glucose Point of Care 153 mg/dL (70-110)
[2020-12-25] MEDS: metoprolol tartrate 50 mg Tablet 100 MG PO ×2 (07:38→20:09)
[2020-12-25] MEDS: metoprolol tartrate 25 mg Tablet PO (08:05)
[2020-12-25] MEDS: hydroCHLOROthiazide 25 mg Tablet PO (09:51)
[2020-12-25] MEDS: losartan 50 mg Tablet 100 MG PO (09:51)
[2020-12-25 11:31] LABS: Glucose Point of Care 152 mg/dL (70-110)
--- NOTE | 2020-12-25 13:47 | SUR.PREOP ---
Patient reports no pain or discomfort prior to the start of the procedure.
[2020-12-25] MEDS: regadenoson 0.4 Mg/5 ml Syringe IVP (13:49)
--- NOTE | 2020-12-25 15:22 | PC.NURSE ---
pt finished with cardiac stress test at 1430.tolerated procedure well.a.m. lasix was held until after test.lasix given,along with cardizem and potassium at this time.hr remains elevated 100-130's (afib).bp stable.dr mookie richard aware.
[2020-12-25] MEDS: potassium chloride ER 20 mEq Tablet 40 MEQ PO (15:26)
[2020-12-25] MEDS: dilTIAZem 30 mg Tablet PO ×2 (15:27→20:09)
[2020-12-25] MEDS: FUROsemide 40 mg Tablet PO (15:27)
--- NOTE | 2020-12-25 15:29 | PC.NURSE ---
cardizem,potassium and lasix not scanned..computers were done at the time.
[2020-12-25 16:46] LABS: Glucose Point of Care 240 mg/dL (70-110)
--- NOTE | 2020-12-25 17:46 | PM.PN ---
Subjective Subjective: Interval history: Patient continues to remain in A. fib, heart rate, has remained in upper upper 90s to 110. Patient underwent stress test today. Said he only slept only few hours last night. Medications: Reviewed: Yes Vitals/I&O/Wt Last Vital Signs Temp 98.0 F 12/25/20 16:00 Pulse 122 H 12/25/20 16:00 Resp 26 H 12/25/20 16:00 BP 127/106 12/25/20 16:00 Pulse Ox 91 12/25/20 16:00 12/25/20 12/25/20 12/25/20 06:59 14:59 22:59 Intake Total 630 / 1472.946 480 / 480 480 / 960 Balance 630 / 647.946 480 / 480 480 / 960 Weight last 48 hrs Weight 117.934 kg Weight 117.48 kg Physical Exam Const: COMMON NORMALS: patient oriented x3 HENMT: COMMON NORMALS: normocephalic and atraumatic HEAD & SCALP: normocephalic and atraumatic Resp: COMMON NORMALS: normal respiratory effort and clear to auscultation bilaterally EFFORT & INSPECTION: Yes symmetric chest movement AUSCULTATION: clear to auscultation bilaterally Cardio: COMMON NORMALS: Peripheral pulses 2+ throughout PERIPHERAL PULSES: Peripheral pulses 2+ throughout OTHER: Irregularly Irregular, S1S2 is of variable intensity. No MRG. GI: COMMON NORMALS: Normal to inspection, nondistended, normoactive bowel sounds present, Soft to palpation, non-tender, No hepatosplenomegaly present and no masses AUSCULTATION: Yes normoactive bowel sounds PALPATION: Yes Soft to palpation and Yes No hepatosplenomegaly present RECTAL EXAM: Yes deferred Extremity: COMMON NORMALS: no clubbing, cyanosis or edema and no pedal edema NARRATIVE EXTREMITY EXAM: Varicose Vein Present Neuro: COMMON NORMALS: patient oriented x3 Data : 12/25/20 04:09 12/25/20 04:09 A&P Assessment and plan (1) Atrial fibrillation with rapid ventricular response: 2D Echo: Normal left ventricular cavity size, wall thickness.Mildly decreased left ventricular systolic function. Left ventricular ejection fraction is estimated at 45-50 %. Mild global hypokinesis.Normal right ventricular size and systolic function. Mild mitral valve regurgitation. Stress test : Medium sized fixed area of perfusion abnormality of moderate severity of mid to apical inferior, mid to apical inferoseptal, apical lateral and apical xiong. This may represent old myocardial infarction or attenuation artifact in absence of prone imaging. The left ventricular ejection fraction is reduced with a value of 33%. There is reduced left ventricular global systolic function. No coronary ischemia based on the study. TSH: 3.32 [id number]= 3/9 , 1 for hypertension, 1 for diabetes and one for congestive heart failure Initially he was On Cardizem Drip. Currently On Metoprolol T 100 MG Q12 H Daily. Cardizem 30 mg p.o. every 6 H was also added for better heart rate control. Lovenox 120 mg sc q12h Daily, will switch to eliquis on discharge. Appreciate Cardiology consult Status: Acute (2) Elevated troponin: Likely Type II M.I 2/2 to A.Fib with RVR 2D Echo Status: Acute (3) Congestive heart failure (CHF): HFrEF currently compensated Continue Lasix 40 mg PO daily Status: Acute Qualifiers: Heart failure type: unspecified Heart failure chronicity: acute Qualified Code(s): I50.9 - Heart failure, unspecified (4) Diabetes mellitus: LDSSI FSG Hba1c :6.7 Status: Acute Qualifiers: Diabetes mellitus type: type 2 Diabetes mellitus [facility] insulin use: without intermission coordinator use Diabetes mellitus complication status: without complication Qualified Code(s): E11.9 - Type 2 diabetes mellitus without complications (5) Hypertension: Status: Acute Qualifiers: Hypertension type: essential hypertension Qualified Code(s): I10 - Essential (primary) hypertension Additional A&P Information Code Status :Full Code DVT PPX :On Lovenox Disposition :Home Attestations Medical Necessity Statement*: Patient needs to be in hospital for management of A. fib with RVR, H/F and the need for medical optimization. Coding Level of Care Code Acute Web Press Operator Helper Offset for g Fwd Diagnoses Atrial fibrillation with rapid ventricular response I48.91 Elevated troponin R77.8 Congestive heart failure (CHF) I50.9 Heart failure type: unspecified Heart failure chronicity: acute Diabetes mellitus E11.9 Diabetes mellitus type: type 2 Diabetes mellitus intermission coordinator insulin use: without intermission coordinator use Diabetes mellitus complication status: without complication Hypertension I10 Hypertension type: essential hypertension
--- NOTE | 2020-12-25 17:51 | PC.NURSE ---
cardizem dose change:cardizem started late due to pt in stress test when cardizem ordered.
--- NOTE | 2020-12-25 18:29 | NMCV_ITS ---
NM lisseth perf SPECT r/s* [id number] Kerwin Leslie Age: 70 Gender: M : 1950 Exam Date: 12/25/2020 18:29 Ordering Phys: Cindy Arredondo MD ([email or web address]) Technologist: SHANE Brizuela Exam Location: [facility] Indications: A-fib STRESS TEST Please see separate stress test report in [facility] for full findings IMAGE PROTOCOL Rest/Stress 1 Lexiscan Day Radiopharmaceutical Dose (mCi) Administration Site Administered by Rest: Tc-99m 10.8 IV SHANE Jacobs Sestamibi Stress:Tc-99m 32.8 IV SHANE Brizuela Sestamibi Rest: 25-Dec-2020 60 Discovery 630 Stress: 25-Dec-2020 90 Discovery 630 0.4mg Lexiscan. Supine position only as patient was unable to lay prone. SPECT RESULTS Technical Quality: Good Raw Data Analysis: Normal Image Corrections: No attenuation or motion correction applied Summed Stress Score: 12 Summed Rest Score: 14 Summed Difference Score: 0 PERFUSION FINDINGS Medium sized area of perfusion abnormality of moderate severity of mid to apical inferior, mid to apical inferoseptal, apical lateral and apical xiong on rest and stress images. FUNCTIONAL RESULTS (calculated via Gated SPECT) Stress Image LV EF (%): 33 Stress EDV (mL):148 TID: 0.92 Stress ESV (mL):99 FUNCTIONAL FINDINGS: The left ventricle is normal in size. Transient Ischemia Dilatation of 0.92. The left ventricular ejection fraction is reduced with a value of 33%. There is reduced left ventricular global systolic function. No regional wall motion abnormality. IMPRESSIONS 1. Medium sized fixed area of perfusion abnormality of moderate severity of mid to apical inferior, mid to apical inferoseptal, apical lateral and apical xiong. 2. This may represent old myocardial infarction or attenuation artifact in absence of prone imaging. 3. The left ventricular ejection fraction is reduced with a value of 33%. 4. There is reduced left ventricular global systolic function. 5. No coronary ischemia based on the study. Cindy Arredondo MD (Electronically Signed) Final Date: 25 December 2020 16:42 S
--- NOTE | 2020-12-25 18:36 | P.PN_ITS ---
Subjective Subjective: Interval history: Patient underwent stress test this morning and is in a better mood right now. Heart rate still running 90s to 110's; urine output not documented Medications: Reviewed: Yes Vitals/I&O/Wt Last Vital Signs Temp 98.0 F 12/25/20 16:00 Pulse 122 H 12/25/20 16:00 Resp 26 H 12/25/20 16:00 BP 127/106 12/25/20 16:00 Pulse Ox 91 12/25/20 16:00 12/25/20 12/25/20 12/25/20 06:59 14:59 22:59 Intake Total 630 / 1472.946 480 / 480 480 / 960 Balance 630 / 647.946 480 / 480 480 / 960 Weight last 48 hrs Weight 260 lb Weight 259 lb Physical Exam Narrative: EXAM NARRATIVE: GENERAL: Obese man lying in bed in no acute distress HEENT: Pupils equal round reactive to light. No pallor or icterus. NECK: central trachea, No JVD, No abdominojugular reflex. No carotid bruit. CARDIOVASCULAR SYSTEM: S1-S2 irregular. Tachycardia present . No murmur rubs or gallops. RESPIRATORY SYSTEM: Chest clear to auscultation. No wheezes rhonchi or rubs heard. No use of accessory muscles. ABDOMEN: Soft, nontender and nondistended. Normal bowel sounds present. Large ventral hernia present EXTREMITIES: No cyanosis or clubbing. No right-sidededema. Left foot and ankle trace edema and mild varicosities, 2+ dorsalis pedis and posterior tibial b ilaterally JANITOR CARETAKER: Patient is alert oriented ?3. No focal neurological deficits. Cranial nerves intact. SKIN: Normal turgor and temperature. No breakdown, rash or nail changes noted. PSYCH: Normal insight and judgment. Data : 12/25/20 04:09 12/25/20 04:09 Attestation for Other Data: I personally reviewed and interpreted the following: Other data: Transthoracic echocardiogram 24 December 2020 CONCLUSIONS 1. Normal left ventricular cavity size, wall thickness. Mildly decreased left ventricular systolic function. Left ventricular ejection fraction is estimated at 45-50 %. Mild global hypokinesis. 2. Normal right ventricular size and systolic function. 3. Mild mitral valve regurgitation. 4. No prior similar studies to compare Lexiscan sestamibi myocardial perfusion imaging 25 December 2020 IMPRESSIONS 1. Medium sized fixed area of perfusion abnormality of moderate severity of mid to apical inferior, mid to apical inferoseptal, apical lateral and apical xiong. 2. This may represent old myocardial infarction or attenuation artifact in absence of prone imaging. 3. The left ventricular ejection fraction is reduced with a value of 33%. 4. There is reduced left ventricular global systolic function. 5. No coronary ischemia based on the study. A&P Assessment and plan (1) Dyspnea on exertion: Dyspnea on exertion in setting of mildly decompensated CHF and A. fib with RVR -Multiple CAD risk factor of age, sex, hypertension, diabetes. -May consider stress testing before discharge. Status: Acute (2) Congestive heart failure (CHF): Acute heart failure with midrange EF -Appears well compensated. -Currently on p.o. Lasix. Status: Acute Qualifiers: Heart failure type: unspecified Heart failure chronicity: acute Qualified Code(s): I50.9 - Heart failure, unspecified (3) Atrial fibrillation: A. fib with RVR. [id number]= 3/9 , 1 for hypertension, 1 for diabetes and one for congestive heart failure -Started on metoprolol tartrate 100 twice daily; add Cardizem 30 mg p.o. every 6 hours. -Currently on therapeutic Lovenox. May be transition to Xarelto tomorrow in preparation for discharge. -Mildly decreased LV function with ejection fraction estimated at 45 to 50%. -Normal TSH. Status: Acute Qualifiers: Atrial fibrillation type: persistent (not longstanding) Qualified Code(s): I48.19 - Other persistent atrial fibrillation (4) Hypertension: Status: Acute Qualifiers: Hypertension type: essential hypertension Qualified Code(s): I10 - Essential (primary) hypertension (5) Elevated troponin: Mildly elevated likely in setting of A. fib with RVR Status: Acute (6) Diabetes mellitus: Status: Acute Qualifiers: Diabetes mellitus type: type 2 Diabetes mellitus termite control representative insulin use: without termite control representative use Diabetes mellitus complication status: without complica tion Qualified Code(s): E11.9 - Type 2 diabetes mellitus without complications Additional A&P Information Hypomagnesemia: Replaced, F/u on magnesium level tomorrow Hypokalemia: Replaced Mildly decreased LV function Mild mitral regurgitation Ventral hernia Thank you for allowing me to participate in patient's care. Please feel free to call with questions or concerns. Attestations Medical Necessity Statement*: Patient needs to be in hospital for the management of A.fib with RVR Time Spent in Patient Care: 16 - 35 minutes (>than 50% of time spent in counselling and/or direct pt care on unit) . Coding Level of Care Code Acute Director Security Risk Management for Chg Fwd Diagnoses Dyspnea on exertion R06.00 Congestive heart failure (CHF) I50.9 Heart failure type: unspecified Heart failure chronicity: acute Atrial fibrillation I48.19 Atrial fibrillation type: persistent (not longstanding) Hypertension I10 Hypertension type: essential hypertension Elevated troponin R77.8 Diabetes mellitus E11.9 Diabetes mellitus type: type 2 Diabetes mellitus fpc insulin use: without fpc use Diabetes mellitus complication status: without complication
--- NOTE | 2020-12-25 21:20 | PC.NURSE ---
PT IS RESTING IN BED. PT DENIES PAIN AT THIS TIME. WILL CONTINUE TO MONITOR.
[2020-12-26] MEDS: dilTIAZem 30 mg Tablet PO (03:21)
[2020-12-26 03:24] VITALS: BP 131/81; PULSE 92; RESP 21; TEMP 36.4; O2SAT 93
--- NOTE | 2020-12-26 04:06 | PC.NURSE ---
PT IS WANTING TO GO HOME. PT IS RESTING IN BED. DENIES PAIN AT THIS TIME. WILL CONTINUE TO MONITOR.
[2020-12-26 05:04] LABS: Basophils % 0.4 %; Eosinophils # 0.2 10^3/uL (0.0-0.8); Eosinophils % 3.3 %; Hematocrit 42.8 % (42.0-52.0); Hemoglobin 14.1 g/dL (11.7-16.6); Lymphocytes # 2.4 10^3/uL (0.8-4.8); Mean Corpuscular HGB Conc 32.9 g/dL (30.0-36.0); Mean Corpuscular Volume 88.1 fL (80-94); Mean Platelet Volume 11.2 fL (7.4-10.4); Monocytes # 0.7 10^3/uL (0.2-0.9); Monocytes % 10.8 %; Neutrophils # 3.38 10^3/uL (1.8-7.7); Neutrophils % 50.2 %; Nucleated Red Blood Cells % 0 %; Platelet Count 253 10^3/cmm (130-400); Red Blood Count 4.86 10^6/uL (4.1-5.3); Red Cell Distribution Width 13.8 % (12.1-15.1); White Blood Count 6.7 10^3/uL (4.0-10.0)
[2020-12-26 05:21] LABS: Magnesium 1.7 mg/dL (1.7-2.3)
[2020-12-26 05:22] LABS: Alanine Aminotransferase 63 U/L (0-41); Albumin Level 3.8 g/dL (3.5-5.2); Alkaline Phosphatase 34 IU/L (40-130); Anion Gap 15.5 (5-19); Aspartate Amino Transferase 31 U/L (0-40); Blood Urea Nitrogen 18 mg/dL (8-23); Calcium 8.7 mg/dL (8.5-10.5); Carbon Dioxide 24 mmol/L (22-29); Chloride 102 mmol/L (98-107); Creatinine Clr Calc Pharmacy 92.4362; Globulin 2.8 g/dL (1.3-4.6); Glucose 179 mg/dL (65-115); Osmolality Calculated 292 mOsm/kg (285-295); Potassium 3.5 mmol/L (3.5-5.1); Sodium 138 mmol/L (136-145); Total Bilirubin 0.7 mg/dL (0.15-1.2); Total Protein 6.6 g/dL (6.6-8.7)
[2020-12-26 05:28] VITALS: PULSE 116
[2020-12-26] MEDS: apixaban 5 mg Tablet PO ×2 (05:44→08:48)
[2020-12-26] MEDS: pantoprazole DR 40 mg Tablet PO (05:44)
[2020-12-26 06:51] LABS: Glucose Point of Care 221 mg/dL (70-110)
[2020-12-26 07:18] VITALS: BP 105/81; PULSE 81; RESP 15; TEMP 36.3; O2SAT 92
[2020-12-26] MEDS: FUROsemide 40 mg Tablet PO (07:33)
[2020-12-26] MEDS: dilTIAZem ER (24HR) 180 mg Capsule PO (08:46)
[2020-12-26 08:47] VITALS: BP 122/90
[2020-12-26] MEDS: losartan 50 mg Tablet PO (08:47)
[2020-12-26] MEDS: hydroCHLOROthiazide 25 mg Tablet PO (08:47)
[2020-12-26] MEDS: potassium chloride ER 20 mEq Tablet PO (08:48)
[2020-12-26] MEDS: metoprolol tartrate 50 mg Tablet 100 MG PO (08:48)
--- NOTE | 2020-12-26 10:48 | DCPLANNER ---
IMM completed with pt on 12/26/20 @ 2962. Copy of rights given to pt.
--- NOTE | 2020-12-26 11:17 | PM.PN ---
Subjective Subjective: Interval history: He feels well this morning. Medications: Reviewed: Yes Medication Review Details: Current Medications Acetaminophen (Acetaminophen 325 Mg Tablet) 650 mg PO Q6H PRN PRN Reason: Mild/Mod Pain Or Temp >/= 101 Apixaban (Apixaban 5 Mg Tablet) 5 mg PO BID@0900,2100 [facility] Last Admin: 12/26/20 08:48 Dose: 5 mg Documented by: Bisacodyl (Bisacodyl 5 Mg Tablet) 10 mg PO DAILY PRN PRN Reason: CONSTIPATION Dextrose (Dextrose 50% Syringe 50 Ml) 25 ml IVP ONCE PRN; Protocol PRN Reason: hypoglycemia protocol Dextrose (Dextrose 50% Syringe 50 Ml) 50 ml IVP PRN PRN; Protocol PRN Reason: hypoglycemia protocol Diltiazem HCl (Diltiazem Er (24hr) 180 Mg Capsule) 180 mg PO DAILY [facility] Last Admin: 12/26/20 08:46 Dose: 180 mg Documented by: Furosemide (Furosemide 40 Mg Tablet) 40 mg PO DAILY@0800 [facility] Last Admin: 12/26/20 07:33 Dose: 40 mg Documented by: Glucagon (Glucagon 1 Mg/Ml Inj 1 Ml) 1 mg IM ONCE PRN; Protocol PRN Reason: Adult Acute Hypoglycemia Prot. Hydrochlorothiazide (Hydrochlorothiazide 25 Mg Tablet) 25 mg PO DAILY [facility] Last Admin: 12/26/20 08:47 Dose: 25 mg Documented by: Dextrose (D5w) 500 mls @ 100 mls/hr IV ONCE PRN; Protocol PRN Reason: Adult Acute Hypoglycemia Prot Insulin Aspart (Insulin Aspart 100 Unit/1 Ml) 0 unit SUBCUT WM&BEDTIME [facility]; Protocol Last Admin: 12/26/20 07:33 Dose: 6 unit Documented by: Losartan Potassium (Losartan 50 Mg Tablet) 50 mg PO DAILY [facility] Last Admin: 12/26/20 08:47 Dose: 50 mg Documented by: Metoprolol Tartrate (Metoprolol Tartrate 50 Mg Tablet) 100 mg PO BID@0900,2100 [facility] Last Admin: 12/26/20 08:48 Dose: 100 mg Documented by: Ondansetron HCl (Ondansetron 2 Mg/Ml Sdv 2 Ml) 4 mg IVP Q6H PRN PRN Reason: NAUSEA AND VOMITING Ondansetron HCl (Ondansetron 2 Mg/Ml Sdv 2 Ml) 4 mg IVP Q8H PRN PRN Reason: vomiting, or N/V if npo Ondansetron HCl (Ondansetron 2 Mg/Ml Sdv 2 Ml) 4 mg IVP Q2M PRN PRN Reason: NAUSEA Pantoprazole Sodium (Pantoprazole Dr 40 Mg Tablet) 40 mg PO DAILY@05 [facility] Last Admin: 12/26/20 05:44 Dose: 40 mg Documented by: Vitals/I&O/Wt Last Vital Signs Temp 97.3 F L 12/26/20 07:18 Pulse 81 12/26/20 07:18 Resp 15 12/26/20 07:18 BP 122/90 12/26/20 08:47 Pulse Ox 92 12/26/20 07:18 12/25/20 12/26/20 12/26/20 22:59 06:59 14:59 Intake Total 600 / 1080 240 / 1320 480 / 480 Balance 600 / 1080 240 / 1320 480 / 480 Weight last 48 hrs Weight 251 lb 1.6 oz Weight 260 lb Physical Exam Narrative: EXAM NARRATIVE: GENERAL: Obese man lying in bed in no acute distress HEENT: Pupils equal round reactive to light. No pallor or icterus. NECK: central trachea, No JVD, No carotid bruit. CARDIOVASCULAR SYSTEM: S1-S2 irregular. No murmur rubs or gallops. RESPIRATORY SYSTEM: Chest clear to auscultation. No wheezes rhonchi or rubs heard. No use of accessory muscles. ABDOMEN: Soft, nontender and nondistended. Normal bowel sounds present. Large ventral hernia present EXTREMITIES: No cyanosis or clubbing. No right-sidededema. No edema and mild varicosities in left ankle, 2+ dorsalis pedis and posterior tibial bilaterally PIT RECORDER: Patient is alert oriented ?3. No focal neurological deficits. Cranial nerves intact. SKIN: Normal turgor and temperature. No breakdown, rash or nail changes noted. PSYCH: Normal insight and judgment. Data : 12/26/20 04:26 12/26/20 04:26 A&P Assessment and plan (1) Dyspnea on exertion: Dyspnea on exertion in setting of mildly decompensated CHF and A. fib with RVR -Multiple CAD risk factor of age, sex, hypertension, diabetes. -No significant ischemia on stress test. -improved. -stable to be discharged home. -Follow up with me in 2 weeks in [facility]. Status: Acute (2) Congestive heart failure (CHF): Acute heart failure with midrange EF -Appears well compensated. -Currently on p.o. Lasix. -May continue HCTZ on discharge. Status: Acute Qualifiers: Heart failure type: unspecified Heart failure chronicity: acute Qualified Code(s): I50.9 - Heart failure, unspecified (3) Atrial fibrillation: A. fib with RVR. [id number]= 3/9 , 1 for hypertension, 1 for diabetes and one for congestive heart failure -continue metoprolol and cardizem on discharge. transitioned to Eliquis. -Mildly decreased LV function with ejection fraction estimated at 45 to 50%. -Normal TSH. Status: Acute Qualifiers: Atrial fibrillation type: persistent (not longstanding) Qualified Code(s): I48.19 - Other persistent atrial fibrillation (4) Hypertension: Status: Acute Qualifiers: Hypertension type: essential hypertension Qualified Code(s): I10 - Essential (primary) hypertension (5) Elevated troponin: Mildly elevated likely in setting of A. fib with RVR Status: Acute (6) Diabetes mellitus: Status: Acute Qualifiers: Diabetes mellitus type: type 2 Diabetes mellitus chcf insulin use: without chcf use Diabetes mellitus complication status: without complication Qualified Code(s): E11.9 - Type 2 diabetes mellitus without complications Additional A&P Information Hypomagnesemia: Replaced, F/u on magnesium level tomorrow Hypokalemia: Replaced Mildly decreased LV function Mild mitral regurgitation Ventral hernia Thank you for allowing me to participate in patient's care. Please feel free to call with questions or concerns. Attestations Medical Necessity Statement*: Patient needs to be in hospital for the management of A.fib with RVR Time Spent in Patient Care: 16 - 35 minutes (>than 50% of time spent in counselling and/or direct pt care on unit). Coding Level of Care Code Acute Loan Examiner for Richag Fwd Diagnoses Dyspnea on exertion R06.00 Congestive heart failure (CHF) I50.9 Heart failure type: unspecified Heart failure chronicity: acute Atrial fibrillation I48.19 Atrial fibrillation type: persistent (not longstanding) Hypertension I10 Hypertension type: essential hypertension Elevated troponin R77.8 Diabetes mellitus E11.9 Diabetes mellitus type: type 2 Diabetes mellitus terminal supervisor insulin use: without chcf use Diabetes mellitus complication status: without complication
--- NOTE | 2020-12-26 11:22 | P.DS_ITS ---
Discharge Providers Date of Admission: 12/23/20 15:01 Date of Discharge: December 26, 2020 Attending Provider at Admission: Steve Medrano MD Attending Provider at Discharge: Steve Medrano MD Primary Care Provider: Trevin Lewis DO Diagnoses at Discharge Discharge Diagnosis (1) Atrial fibrillation with rapid ventricular response: Status: Chronic (2) Elevated troponin: Status: Resolved (3) Congestive heart failure (CHF): Status: Chronic Qualifiers: Heart failure chronicity: acute Heart failure type: unspecified Qualified Code(s): I50.9 - Heart failure, unspecified (4) Diabetes mellitus: Status: Chronic Qualifiers: Diabetes mellitus complication status: without complication Diabetes mellitus terminal carman insulin use: without group home use Diabetes mellitus type: type 2 Qualified Code(s): E11.9 - Type 2 diabetes mellitus without complications (5) Hypertension: Status: Chronic Qualifiers: Hypertension type: essential hypertension Qualified Code(s): I10 - Essential (primary) hypertension Reason for Visit Reason for Visit: SENT BY DR LEWIS - PT SPOUSE STATES [facility] Hospital Course Hospital Course 70 year old male with PMH of HTN and DM came in with c/o worsening fatigue as well as SOB going on for about 2 weeks.SOB has got progressively worsened particularly with exertion.But he deny any orthopnea and PND. He denied any cough,fever,palpitation,nausea,vomiting chest pain,headache.He was at his pcp office today where they ended up doing an ekg,which showed new onset A,fib with RVR and thereafter he was sent to the ER.Upon arrival in the ER he was worked up for above mentioned complain. Pertinent work up : EKG : A. fib with RVR, NONSPECIFIC T-WAVE ABNORMALITY, Rate : 134 Xray chest : Cardiomegaly and bilateral pleural effusions Troponins :Baseline Troponin : 26, 2H T: 24.28 Delta 2h : -1.78 , 6H : 25.59 , Delta 6H : -0.41 TSH :3.32.ECA Medications : Cardizem 20 mg I.V * 1 Dose , Cardizem Drip , Lovenox 120 mg sc * 1 Dose. Was admitted for the management of new onset A. fib with RVR. During the hospital stay he was kept on Cardizem drip later transitioned to p.o. Cardizem as well as p.o. metoprolol. He was discharged on Cardizem CD PO 180 MG oral as well as metoprolol succinate 100 mg p.o. every 12 hours daily, along with Xarelto 20 mg p.o., his [id number] score was:3/9, 1 for hypertension 1 for diabetes and 1 for CHF. His home amlodipine was stopped, losartan dose was reduced to 50 mg p.o. daily from 100 mg p.o. daily, he was continued on hydrochlorothiazide,he was continued on his home antidiabetic medications. During the hospital stay he underwent cardiac stress test: As well as 2D echo: 2D Echo: Normal left ventricular cavity size, wall thickness.Mildly decreased left ventricular systolic function. Left ventricular ejection fraction is estimated at 45-50 %. Mild global hypokinesis.Normal right ventricular size and systolic function. Mild mitral valve regurgitation. Stress test : Medium sized fixed area of perfusion abnormality of moderate severity of mid to apical inferior, mid to apical inferoseptal, apical lateral and apical xiong. This may represent old myocardial infarction or attenuation artifact in absence of prone imaging. The left ventricular ejection fraction is reduced with a value of 33%. There is reduced left ventricular global systolic function. No coronary ischemia based on the study. He was also managed for mildly decompensated heart failure with reduced ejection fraction. He was kept on IV as well as p.o. Lasix. He was euvolemic at the time of discharge. He was not having any orthopnea or PND was not needing any supplemental oxygen support, was saturating well on room air. At the time of di scharge his heart rate was well controlled though he continued to remain in A. fib. Patient responded well to the above medical management and is being discharged in stable condition he will continue to follow his primary care physician as well as cardiology as an outpatient. Physical Exam Const: COMMON NORMALS: patient oriented x3 HENMT: COMMON NORMALS: normocephalic and atraumatic HEAD & SCALP: normocephalic and atraumatic Resp: COMMON NORMALS: normal respiratory effort and clear to auscultation bilaterally EFFORT & INSPECTION: Yes symmetric chest movement AUSCULTATION: clear to auscultation bilaterally Cardio: COMMON NORMALS: Peripheral pulses 2+ throughout PERIPHERAL PULSES: Peripheral pulses 2+ throughout OTHER: Irregularly Irregular, S1S2 is of variable intensity. No MRG. GI: COMMON NORMALS: Normal to inspection, nondistended, normoactive bowel sounds present, Soft to palpation, non-tender, No hepatosplenomegaly present and no masses AUSCULTATION: Yes normoactive bowel sounds PALPATION: Yes Soft to palpation and Yes No hepatosplenomegaly present RECTAL EXAM: Yes deferred Extremity: COMMON NORMALS: no clubbing, cyanosis or edema and no pedal edema NARRATIVE EXTREMITY EXAM: Varicose Vein Present Neuro: COMMON NORMALS: patient oriented x3 Discharge Data Data Completed and Pending: Completed Studies During Hospitalization Category Date Time Status Sestamibi Stress Test Request Routi ne Exams 12/24/20 18:29 Completed NM lisseth perf SPECT r/s* [id number] Routin e Nuc Med 12/25/20 18:29 Completed CV echo complete* [id number] Routine Ultrasound 12/24/20 05:00 Completed Pending at discharge Category Date Time Status Magnesium AM LABS Lab 12/27/20 04:00 Ordered Magnesium AM LABS Lab 12/28/20 04:00 Ordered Labs from last 24 hours 12/26/20 12/26/20 12/26/20 06:34 04:26 04:26 WBC RBC Hgb Hct MCV MCH MCHC RDW Plt Count MPV Neut % (Auto) Lymph % (Auto) [place] % (Auto) Eos % (Auto) Baso % (Auto) Neut # (Auto) Lymph # (Auto) [place] # (Auto) Eos # (Auto) Baso # (Auto) Nucleated RBC % (a uto) Nucleated RBCs # Sodium 138 Potassium 3.5 Chloride 102 Carbon Dioxide 24 Anion Gap 15.5 BUN 18 Creatinine 1.0 GFR Calculation Not Reportable Glucose 179 H POC Glucose 221 H Calculated Osmolal ity 292 Calcium 8.7 Magnesium 1.7 Total Bilirubin 0.7 AST 31 ALT 63 H Alkaline Phosphata se 34 L Total Protein 6.6 Albumin 3.8 Globulin 2.8 12/26/20 12/25/20 12/25/20 04:26 16:30 11:13 WBC 6.7 RBC 4.86 Hgb 14.1 Hct 42.8 MCV 88.1 MCH 29.0 MCHC 32.9 RDW 13.8 Plt Count 253 MPV 11.2 H Neut % (Auto) 50.2 Lymph % (Auto) 35.0 [place] % (Auto) 10.8 Eos % (Auto) 3.3 Baso % (Auto) 0.4 Neut # (Auto) 3.38 Lymph # (Auto) 2.4 [place] # (Auto) 0.7 Eos # (Auto) 0.2 Baso # (Auto) 0.0 Nucleated RBC % (a uto) 0 Nucleated RBCs # 0.0 Sodium Potassium Chloride Carbon Dioxide Anion Gap BUN Creatinine GFR Calculation Glucose POC Glucose 240 H 152 H Calculated Osmolal ity Calcium Magnesium Total Bilirubin AST ALT Alkaline Phosphata se Total Protein Albumin Globulin Vitals: Last Vital Signs Temp 97.3 F L 12/26/20 07:18 Pulse 81 12/26/20 07:18 Resp 15 12/26/20 07:18 BP 122/90 12/26/20 08:47 Pulse Ox 92 12/26/20 07:18 Discharge Plan Discharge Patient Disposition: Home Condition: Stable Prescriptions: New losartan 50 mg Tablet 50 mg PO DAILY Qty: 30 RF: 3 DILT-XR 180 mg Capsule,Ext.Rel 24h Degradable 180 mg PO DAILY Qty: 30 RF: 3 Xarelto 20 mg tablet 20 mg PO DAILY Qty: 30 RF: 3 hydrochlorothiazide 25 mg tablet 25 mg PO DAILY Qty: 30 RF: 3 metoprolol succinate 100 mg tablet extended release 24 hr 100 mg PO BID Qty: 60 RF: 3 Continued metformin 1,000 mg tablet 1,000 mg PO BID@ RF: 0 omeprazole 20 mg capsule,delayed release(DR/EC) 20 mg PO DAILY@05 RF: 0 glipizide 5 mg tablet 5 mg PO BID@, RF: 0 Discontinued losartan-hydrochlorothiazide 100-25 mg tablet 1 tab PO DAILY@05 RF: 0 amlodipine 10 mg tablet 10 mg PO DAILY@05 RF: 0 Discharge Orders: Discharge Order (Routine); Ordered 12/26/20 Ordered By: Steve Medrano Referrals: Trevin Lewis DO [Primary Care Provider] - 2 weeks (You have a follow up appointment with Dr. Zhong on 01/08 at 9:20 am. IF you can not keep this appointment please call to rescedule. ) Cindy Arredondo MD [Physician] - 1 month (You have a follow up appointment with Dr. Arredondo on January 23 at 2:45 pm. If you can not keep this appointment please call to reschedule. ) Discharge Diet: Diabetic and Low Salt Discharge Activity: Resume usual activity Patient Instructions: Atrial Fibrillation, Metoprolol (By mouth), Diltiazem (By mouth), Rivaroxaban (By mouth), Chest Pain Stoplight, Opioid Safety Discharge Attestations Time Spent in Discharge Care*: greater than 30 min Specific Discharge Activities: educating patient, educating and/or supporting family/caregiver, discussing with pcp/other providers, discussing with watch case polisher/social workers/dc planners, documenting/other paperwork and evaluating patient/reviewing data Status at Discharge: Cognitive status at discharge: cognitively intact , Behavioral status at discharge: cooperative , Functional status at discharge: independent ambulation Overall status at discharge: patient is back to baseline Quality Metrics Clinical Quality Measures During this hospital stay, did patient experience: None Coding Level of Care Code Acute [facility] note Diagnoses Atrial fibrillation with rapid ventricular response I48.91 Elevated troponin R77.8 Congestive heart failure (CHF) I50.9 Heart failure chronicity: acute Heart failure type: unspecified Diabetes mellitus E11.9 Diabetes mellitus complication status: without complication Diabetes mellitus group home insulin use: without terminal carman use Diabetes mellitus type: type 2 Hypertension I10 Hypertension type: essential hypertension
[2020-12-26 11:36] VITALS: BP 121/82; PULSE 76; RESP 18; O2SAT 96
[2020-12-26 11:38] VITALS: BP 121/82; PULSE 76; RESP 18; O2SAT 96
[2020-12-26 11:52] LABS: Glucose Point of Care 137 mg/dL (70-110)
== END 2020-12-26 12:25 | disposition home or self-care (01) | DRG 308 ==
LOC: ER 14:57 → CSU 15:11
PROVIDERS: Internal Medicine Cardiovascular Disease; Admitting Provider Internal Medicine; Emergency Provider Family Medicine; PCP Family Medicine; Visit Provider Internal Medicine
DX: I48.91 Unspecified atrial fibrillation (principal); I50.33 Acute on chronic diastolic (congestive) heart failure; I11.0 Hypertensive heart disease with heart failure; E11.9 Type 2 diabetes mellitus without complications; Z87.891 Personal history of nicotine dependence; E66.9 Obesity, unspecified; Z68.31 Body mass index [BMI] 31.0-31.9, adult; Z82.49 Family history of ischemic heart disease and other diseases of the circulatory system; E83.42 Hypomagnesemia; E87.6 Hypokalemia; I34.0 Nonrheumatic mitral (valve) insufficiency; K43.9 Ventral hernia without obstruction or gangrene; Z79.84 Long term (current) use of oral hypoglycemic drugs; R77.8 Other specified abnormalities of plasma proteins
CPT/HCPCS: 36415; 36416; 71046; 78452; 80053; 82962; 83036; 83735; 83880; 84145; 84439; 84443; 84484; 85025; 90732; 93005; 93017; 93306; 96365; 96366; 96372; 96375; 99285; A9500; J1650; J1815; J1940; J2785; J3475; J3490

== ENCOUNTER 2021-01-19 02:54 | Inpatient (IN) | payer MEDICARE, SELFPAY ==
[2021-01-19] VITALS (51 sets, daily range): BP systolic 127–172; BP diastolic 79–119; PULSE 66–126; RESP 16–30; TEMP 36.8–36.9; O2SAT 87–96; BMI 31.8
--- NOTE | 2021-01-19 03:11 | XRR_ITS ---
PROCEDURE INFORMATION: Exam: XR Chest Exam date and time: 01/19/2021 3:46 AM Age: 70 years old Clinical indication: Shortness of breath; Additional info: SOB TECHNIQUE: Imaging protocol: XR of the chest. Views: 1 view. COMPARISON: CR XR chest 2V* [id number] 12/23/2020 11:11 AM FINDINGS: Lungs: Pulmonary vascular congestion changes, bibasilar infiltrates and small pleural effusions are seen bilaterally. Heart/Mediastinum: The heart size is enlarged. Bones/joints: Unremarkable. XR/XR chest 1V portable [id number] IMPRESSION: Findings are consistent with CHF.
--- NOTE | 2021-01-19 03:12 | ECG_ITS ---
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 Measurements Intervals [place] Rate: 116 P: VT: QRS: 18 QRSD: 95 T: 27 QT: 332 QTc: 461 Interpretive Statements ATRIAL FIBRILLATION WITH RAPID VENTRICULAR RESPONSE LOW QRS VOLTAGE IN EXTREMITY LEADS [QRS DEFLECTION < 0.5 mV IN LIMB LEADS] SEPTAL MYOCARDIAL INFARCTION , PROBABLY OLD [40+ ms Q WAVE IN V1/V2] Compared to ECG 12/23/2020 21:59:25 Low QRS voltage now present Myocardial infarct finding now present Electronically Signed On 01-19-2021 15:32:36 CDT by Miguel Barrera M.D. [id number]
[2021-01-19 03:21] LABS: Basophils % 0.3 %; Eosinophils # 0.3 10^3/uL (0.0-0.8); Eosinophils % 3.2 %; Hematocrit 43.8 % (42.0-52.0); Hemoglobin 14.4 g/dL (11.7-16.6); Lymphocytes # 2.3 10^3/uL (0.8-4.8); Lymphocytes % 24.9 %; Mean Corpuscular HGB Conc 32.9 g/dL (30.0-36.0); Mean Corpuscular Hemoglobin 28.8 pg (28.0-34.0); Mean Corpuscular Volume 87.6 fL (80-94); Monocytes # 0.7 10^3/uL (0.2-0.9); Neutrophils # 5.98 10^3/uL (1.8-7.7); Neutrophils % 64.4 %; Nucleated Red Blood Cells % 0 %; Platelet Count 254 10^3/cmm (130-400); Red Cell Distribution Width 14.1 % (12.1-15.1); White Blood Count 9.3 10^3/uL (4.0-10.0)
[2021-01-19] MEDS: levalbuterol 1.25 mg/3 mL Neb INHALATION (03:35)
--- NOTE | 2021-01-19 03:36 | ED_ITS ---
HPI - SOB/Dyspnea General: Chief Complaint: Shortness of Breath/Dyspnea Stated Complaint: difficulty breathing Time Seen by Provider: 01/19/21 03:01 History of Present Illness: HPI Narrative: 70-year-old male with a history of atrial fibrillation diabetes presents short of breath. He had a recent hospitalization a couple of weeks ago. He notes increasing shortness of breath since his discharge. He has had one good night of sleep he says. He has had a bit of a cough, but not much. No sputum production. He has been wheezy. He seems to have more trouble at night. He has trouble with lying flat. He does not use oxygen at home. No fever. MD elicited complaint: shortness of breath Pertinent past history: other Onset (ago): day(s) Context: recent illness Timing: constant Severity: moderate Exacerbating factors: lying flat and exertion Relieving factors: nothing Known history of: other Associated symptoms: Reports cough, diaphoresis, dizziness, fever(s) and nausea; Deny chest pain or palpitations Treatment prior to arrival: none Review of Systems Const: Reports: fever(s) and diaphoresis Eyes: Denies: change in vision Card: Denies: chest pain or palpitations GI: Reports: nausea Neuro: Reports: dizziness; Denies: headache(s) [facility] ED PFSH: Medical History Atrial fibrillation Atrial fibrillation with rapid ventricular response Congestive heart failure (CHF) Diabetes mellitus Dyspnea on exertion Elevated troponin History of testicular cancer Hypertension Surgical History History of ear surgery right Previous back surgery lower Social History Smoking and tobacco status: former smoker Quit status (tobacco): has quit using tobacco Year quit tobacco: age 37 Alcohol intake: never Physical Exam Const: GENERAL APPEARANCE: well developed ORIENTATION/CONSCIOUSNESS: Yes oriented to person, Yes oriented to place and Yes oriented to time HENMT: COMMON NORMALS: normocephalic and Normal external nose present HEAD & SCALP: normocephalic FACE & SINUS: normal facial exam NOSE: Normal external nose present and No nasal discharge present MOUTH: tongue normal Eye: COMMON NORMALS: Equal, round and reactive pupils present, EOMs intact bilaterally and conjunctivae normal EYELID: eyelids normal CONJUNCTIVA: Yes conjunctivae normal PUPIL: Yes Equal, round and reactive pupils present Neck/C-Spine: GENERAL: No tracheal deviation Chest: COMMONS NORMALS: normal inspection of the chest CHEST: No tenderness Resp: COMMON NORMALS: clear to auscultation bilaterally EFFORT & INSPECT ION: Yes tachypneic, Yes respiratory distress, No retractions, Yes uses accessory muscles and No tracheal deviation AUSCULTATION: clear to auscultation bilaterally, no rhonchi, no wheezes and lung sounds not diminished Cardio: RATE: tachycardic RHYTHM: abnormal rhythm irregularly irregular HEART SOUNDS: no murmurs PERIPHERAL PULSES: radial pulses present GI: INSPECTION: No abdominal distension AUSCULTATION: No Hyperactive bowel sounds present and No Hypoactive bowel sounds present PALPATION: No Guarding due to palpation present (GI) and No Rigid due to palpation PERCUSSION: no dullness to percussion and no tympanic to percussion Neuro: SENSORIUM/ORIENTATION: Yes oriented to person, Yes oriented to place and Yes oriented to time Psych: COMMON NORMALS: mental status grossly normal Skin: COMMON NORMALS: no rashes or lesions noted GENERAL SKIN EXAM: no rashes or lesions noted Course Consultations: Consultation #1: martha Vital Signs: Vital signs: Vital Signs Temperature 98.5 F 01/19/21 03:03 Pulse Rate 94 01/19/21 03:41 Respiratory Rate 22 H 01/19/21 03:36 Blood Pressure 127/88 01/19/21 03:24 Pulse Oximetry 94 01/19/21 03:36 MDM - SOB/Dyspnea MDM Narrative: Medical decision making narrative: 70-year-old gentleman short of breath with increased heart rate and respiratory rate. He is hypoxic on room air, with significant tachypnea. He feels much better on 2 L. He was given Cardizem for A. fib with RVR in the 130s. This helped with his reduction in his rate to the 80s. It has crept back up over time though, so we will be starting Cardizem drip. He has been hypertensive as well. Chest x-ray shows signs of congestive heart failure without significant effusion. His BNP is elevated at 7500. He will be admitted for CHF exacerbation with hypoxic respiratory failure and atrial fib with RVR. Lab Data: Labs: Lab Results 01/19/21 01/19/21 01/19/21 Range/Units 03:15 03:15 03:15 WBC 9.3 (4.0-10.0) 10^3/ uL RBC 5.00 (4.1-5.3) 10^6/u L Hgb 14.4 (11.7-16.6) g/dL Hct 43.8 (42.0-52.0) % MCV 87.6 (80-94) fL MCH 28.8 (28.0-34.0) pg MCHC 32.9 (30.0-36.0) g/dL RDW 14.1 (12.1-15.1) % Plt Count 254 (130-400) 10^3/c mm MPV 11.0 H (7.4-10.4) fL Neut % (Auto) 64.4 % Lymph % (Auto) 24.9 % [place] % (Auto) 7.0 % Eos % (Auto) 3.2 % Baso % (Auto) 0.3 % Neut # (Auto) 5.98 (1.8-7.7) 10^3/u L Lymph # (Auto) 2.3 (0.8-4.8) 10^3/u L [place] # (Auto) 0.7 (0.2-0.9) 10^3/u L Eos # (Auto) 0.3 (0.0-0.8) 10^3/u L Baso # (Auto) 0.0 (0.0-0.1) 10^3/u L Nucleated RBC % (a uto) 0 % Nucleated RBCs # 0.0 /100WBC Specimen Type Sample Site ABG pH (7.35-7.45) ABG pCO2 (35-45) mmHg ABG pO2 (80.0-100.0) mmH g ABG HCO3 (22-26) mmol/L ABG Base Excess (-2.0-2.0) mmol/ L Brian Test Hematocrit (42-52) % Hgb O2 Saturation (95-100) % Carboxyhemoglobin (0.4-20.1) %THgb Methemoglobin (0.4-1.5) % Total Hemoglobin (14-18) g/dL Run Boat Operator ID Sodium 138 (136-145) mmol/L Potassium 4.3 (3.5-5.1) mmol/L Chloride 102 (98-107) mmol/L Carbon Dioxide 21 L (22-29) mmol/L Anion Gap 19.3 H (5-19) BUN 23 (8-23) mg/dL Creatinine 0.8 (0.7-1.2) mg/dL GFR Calculation Not Reportable Glucose 180 H (65-115) mg/dL Calculated Osmolal ity 294 (285-295) mOsm/k g Lactic Acid 2.2 (0.5-2.2) mmol/L Calcium 9.0 (8.5-10.5) mg/dL Total Bilirubin 0.6 (0.15-1.2) mg/dL AST 28 (0-40) U/L ALT 80 H (0-41) U/L Alkaline Phosphata se 30 L (40-130) IU/L Troponin T Baselin e (0-15) ng/L NT-Pro-B Natriuret Pep 2552 H (0-125) pg/mL Total Protein 6.5 L (6.6-8.7) g/dL Albumin 4.4 (3.5-5.2) g/dL Globulin 2.1 (1.3-4.6) g/dL 01/19/21 01/19/21 Range/Units 03:15 03:35 WBC (4.0-10.0) 10^3/ uL RBC (4.1-5.3) 10^6/u L Hgb (11.7-16.6) g/dL Hct (42.0-52.0) % MCV (80-94) fL MCH (28.0-34.0) pg MCHC (30.0-36.0) g/dL RDW (12.1-15.1) % Plt Count (130-400) 10^3/c mm MPV (7.4-10.4) fL Neut % (Auto) % Lymph % (Auto) % [place] % (Auto) % Eos % (Auto) % Baso % (Auto) % Neut # (Auto) (1.8-7.7) 10^3/u L Lymph # (Auto) (0.8-4.8) 10^3/u L [place] # (Auto) (0.2-0.9) 10^3/u L Eos # (Auto) (0.0-0.8) 10^3/u L Baso # (Auto) (0.0-0.1) 10^3/u L Nucleated RBC % (a uto) % Nucleated RBCs # /100WBC Specimen Type Arterial Sample Site Radial, left ABG pH 7.43 (7.35-7.45) ABG pCO2 34.1 L (35-45) mmHg ABG pO2 68.9 L (80.0-100.0) mmH g ABG HCO3 22.8 (22-26) mmol/L ABG Base Excess -0.8 (-2.0-2.0) mmol/ L Brian Test Pos Hematocrit 43.9 (42-52) % Hgb O2 Saturation 92.9 L (95-100) % Carboxyhemoglobin 1.1 (0.4-20.1) %THgb Methemoglobin 0.7 (0.4-1.5) % Total Hemoglobin 14.3 (14-18) g/dL Run Boat Operator ID [email or web address] Sodium (136-145) mmol/L Potassium (3.5-5.1) mmol/L Chloride (98-107) mmol/L Carbon Dioxide (22-29) mmol/L Anion Gap (5-19) BUN (8-23) mg/dL Creatinine (0.7-1.2) mg/dL GFR Calculation Glucose (65-115) mg/dL Calculated Osmolal ity (285-295) mOsm/k g Lactic Acid (0.5-2.2) mmol/L Calcium (8.5-10.5) mg/dL Total Bilirubin (0.15-1.2) mg/dL AST (0-40) U/L ALT (0-41) U/L Alkaline Phosphata se (40-130) IU/L Troponin T Baselin e 23 H (0-15) ng/L NT-Pro-B Natriuret Pep (0-125) pg/mL Total Protein (6.6-8.7) g/dL Albumin (3.5-5.2) g/dL Globulin (1.3-4.6) g/dL Discharge Plan Discharge Patient Disposition: Admitted As Inpatient Clinical Impression: Congestive heart failure, Respiratory failure, Atrial fibrillation Condition: Stable Prescriptions: No Action Xarelto 20 mg tablet 20 mg PO DAILY RF: 0 losartan 50 mg tablet 50 mg PO DAILY RF: 0 metformin 1,000 mg tablet 1,000 mg PO BID@ RF: 0 omeprazole 20 mg capsule,delayed release(DR/EC) 20 mg PO DAILY@05 RF: 0 glipizide 5 mg tablet 5 mg PO BID@ RF: 0 DILT-XR 180 mg Capsule,Ext.Rel 24h Degradable 180 mg PO DAILY Qty: 30 RF: 3 hydrochlorothiazide 25 mg tablet 25 mg PO DAILY Qty: 30 RF: 3 metoprolol succinate 100 mg tablet extended release 24 hr 100 mg PO BID Qty: 60 RF: 3 Referrals: Trevin Veliz DO [Primary Care Provider] - Patient Instructions: Opioid Safety Coding Level of Care Code ED Industrial Chemist for Emily Fwd Exam Comprehensive
[2021-01-19 03:44] LABS: ABG PCO2 34.1 mmHg (35-45); ABG PH Result 7.43 (7.35-7.45); Arterial Blood Gas Hematocrit 43.9 % (42-52); Base Excess ABG -0.8 mmol/L (-2.0-2.0); Blood Gas Allen Test Pos; Blood Gas Sample Site Radial, left; Blood Gas Sample Type Arterial; Carboxyhemoglobin 1.1 %THgb (0.4-20.1); HCO3 ABG 22.8 mmol/L (22-26); HGB O2 Sat 92.9 % (95-100); Methemoglobin 0.7 % (0.4-1.5); PO2 ABG 68.9 mmHg (80.0-100.0); Total Hemoglobin 14.3 g/dL (14-18)
[2021-01-19 04:01] LABS: Lactic Sepsis W/Reflex 2.2 mmol/L (0.5-2.2)
[2021-01-19 04:04] LABS: Troponin(5th) Baseline 23 ng/L (0-15)
[2021-01-19 04:12] LABS: Alanine Aminotransferase 80 U/L (0-41); Albumin Level 4.4 g/dL (3.5-5.2); Alkaline Phosphatase 30 IU/L (40-130); Aspartate Amino Transferase 28 U/L (0-40); Blood Urea Nitrogen 23 mg/dL (8-23); Carbon Dioxide 21 mmol/L (22-29); Chloride 102 mmol/L (98-107); Globulin 2.1 g/dL (1.3-4.6); Glucose 180 mg/dL (65-115); NT Pro B Type Natriuretic Pept 2552 pg/mL (0-125); Osmolality Calculated 294 mOsm/kg (285-295); Sodium 138 mmol/L (136-145); Total Bilirubin 0.6 mg/dL (0.15-1.2); Total Protein 6.5 g/dL (6.6-8.7)
[2021-01-19 04:21] LABS: Anion Gap 19.3 (5-19); Potassium 4.3 mmol/L (3.5-5.1)
[2021-01-19] MEDS: FUROsemide 10 mg/mL SDV 10mL 60 MG IVP (04:32)
[2021-01-19] MEDS: nitroglycerin 1 gm/inch oint Pkt 1.5 INCH TOPICAL (04:33)
[2021-01-19 05:07] LABS: Reflex Lactate Order REFLEX LACTIC ORDERD
--- NOTE | 2021-01-19 05:12 | ECG_ITS ---
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 Measurements Intervals [place] Rate: 121 P: [place]: QRS: 23 QRSD: 88 T: 5 QT: 347 QTc: 494 Interpretive Statements ATRIAL FIBRILLATION WITH RAPID VENTRICULAR RESPONSE WITH ABERRANT CONDUCTION OR VENTRICULAR PREMATURE COMPLEXES ABNORMAL RHYTHM ECG Compared to ECG 01/19/2021 03:14:27 Ventricular premature complex(es) now present Aberrant conduction of supraventricular beat(s) now present Myocardial infarct finding no longer present Electronically Signed On 01-19-2021 15:35:59 CDT by Miguel Barrera M.D. [id number]
--- NOTE | 2021-01-19 05:13 | P.HP_ITS ---
Providers/Chief Complaint Primary Care Provider: Trevin Veliz DO Chief Complaint: difficulty breathing History of Present Illness Kerwin Leslie is a 70 year old male was history paroxysmal A. fib, congestive heart failure EF 33%, presented today with chief complaint of worsening shortness of breath. He was recently discharged from the hospital on 12/26 after management A. fib RVR and congestive heart failure cardiology was consulted for asymptomatic atrial fibrillation with CHF who recommended stress test, fixed area of perfusion abnormality was detected no acute coronary ischemia. He was discharged on metoprolol and Cardizem combination along Xarelto. 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 He did not experience any fever, cough, sinus infection. He has been compliant with his medications. Her has been maintaining a diary for pulse blood pressure and glucose which seem to be within normal range until last night. He has not slept well, complaining of orthopnea and PND. Diagnostics in the ER revealed hypertensive urgency, A. fib RVR heart rate 180 improved after getting 50 mg of Cardizem bolus, EKG showing A. fib RVR without ischemic or infarct changes, no chest pain, he was requiring 2 L nasal cannula oxygen supplementation, tachypneic, chest x-ray shows pulmonary edema, worsening of BNP, clinically he is fluid overloaded, he received 60 mg IV Lasix along with Nitropaste hypertensive urgency Review of Systems Const: Reports: body aches, fatigue and malaise; Denies: chills Eyes: Denies: change in vision ENMT: Denies: throat pain Card: Reports: swelling of feet/ankles, pre-syncope, dyspnea on exertion and orthopnea; Denies: chest pain Resp: Reports: dyspnea GI: Reports: nausea; Denies: abdominal pain : Denies: flank pain Musc: Denies: neck pain Skin/Breast: Denies: rash Neuro: Denies: headache(s) Psych: Denies: anxiety Endo: Denies: polyuria Eloy/Lymph: Denies: easy bruising All/Imm: Denies: urticaria Medications/Allergies Home Medications Medication Instructions Recorded Confirmed Last Taken Type glipizide 5 mg PO BID@,12/23/20 01/08/21 12/23/20 History metformin 1,000 mg PO BID@,12/23/20 01/08/21 12/23/20 History omeprazole 20 mg PO DAILY@05 12/23/20 01/08/21 12/23/20 History diltiazem HCl [DILT-XR] 180 mg PO DAILY #30 cap 12/26/20 01/08/21 Unknown Rx hydrochlorothiazide 25 mg PO DAILY #30 tab 12/26/20 01/08/21 Unknown Rx metoprolol succinate 100 mg PO BID #60 tab 12/26/20 01/08/21 Unknown Rx losartan 50 mg tablet 50 mg PO DAILY 01/08/21 01/08/21 Unknown History rivaroxaban 20 mg tablet 20 mg PO DAILY tab 01/08/21 01/08/21 Unknown History Allergies Allergy/AdvReac Type Severity Reaction Status Date / Time No Known Allergies Allergy Verified 01/19/21 03:05 PFSH Acute PFSH: Medical History Atrial fibrillation Atrial fibrillation with rapid ventricular response Congestive heart failure (CHF) Diabetes mellitus Dyspnea on exertion Elevated troponin History of testicular cancer Hypertension Surgical History History of ear surgery right Previous back surgery lower Family History (Updated 01/19/21 @ 05:52 by Tasha Corbett MD) Brother CAD (coronary artery disease) Father CAD (coronary artery disease) Sudden cardiac arrest age 60 Social History Smoking and tobacco status: former smoker Quit status (tobacco): has quit using tobacco Year quit tobacco: age 37 Alcohol intake: never Vitals/I&O/Wt Last Vital Signs Temp 98.5 F 01/19/21 03:03 Pulse 94 01/19/21 03:41 Resp 22 H 01/19/21 03:36 BP 127/88 01/19/21 03:24 Pulse Ox 94 01/19/21 03:36 Weight last 48 hrs Weight 115.666 kg Physical Exam Narrative: EXAM NARRATIVE: male, looks stated age Currently requiring 2 L nasal cannula Tachypneic Was laying supine when I entered the room Clinically fluid overloaded Bilateral extremity edema 1+ By basilar crackles on lung auscultation, diminished airflow S1, S2 variable Abdomen soft nontender bowel sound present Awake alert oriented x3 GCS 15 No neurological deficit Appropriate mood and affect Data : 01/19/21 03:15 01/19/21 03:15 Micro: Microbiology 01/19/21 03:50 Blood Culture - Preliminary Blood SPECIMEN COLLECTED 01/19/21 03:50 Blood Culture - Preliminary Blood SPECIMEN COLLECTED A&P Assessment and plan (1) CHF exacerbation: Status: Acute (2) Atrial fibrillation with RVR: Status: Acute Additional A&P Information A. fib with acute RVR Symptomatic tachyarrhythmia causing congestive heart failure His heart rate would go above 110 on ambulation, but CHF I would not add digoxin as it will only improve resting tachycardia, I do believe at this point he has failed beta-cirilo calcium level combination therapy(however dosages not optimized) and would benefit from antiarrhythmics for better rate control and keeping his rhythm in sinus. of note, it might be very difficult because of his left atrial diameter 4.3 cm on recent echo Continue Xarelto, [id number] 3 Acute CHF exacerbation Etiology seems to be tachyarrhythmia Rate control with Cardizem gtt. with target heart rate less than 80 at rest and 110 on ambulation Add Lasix for worsening CHF Avoid digoxin because of his tachyarrhythmia on exertion as compared to at rest Recent stress test and echo 45 to 50% EF mild global hypokinesia, mild mitral v alve regurgitation, no coronary ischemia Full code Consistent carb diet for type 2 diabetes with moderate dose sliding scale DVT prophylaxis not indicated Attestations Medical Necessity Statement*: Anticipating discharge in less than 48 hours currently need adjustment of his rate controlling medication, he has A. fib RVR with CHF exacerbation Time Spent in Patient Care: (>than 50% of time spent in counselling and/or direct pt care on unit) . 40mins Coding Level of Care Code Acute Deicer Repairer for Richag Fwd Diagnoses CHF exacerbation I50.9 Atrial fibrillation with RVR I48.91
[2021-01-19 06:07] LABS: Lactic Acid level (Lactate) 2.1 mmol/L (0.5-2.2); Troponin 5 2HR 19.87 ng/L (0-15)
[2021-01-19 06:18] LABS: Troponin 5 2HR Delta -3.13 ABS# (0-10)
--- NOTE | 2021-01-19 06:56 | PC.NURSE ---
recmaxx. from e.d. on cardizem gtt. ambulated to bed.
[2021-01-19 07:21] LABS: Glucose Point of Care 193 mg/dL (70-110)
[2021-01-19] MEDS: FUROsemide 20 mg Tablet PO (07:42)
[2021-01-19] MEDS: potassium chloride ER 10 mEq Tablet PO (07:44)
--- NOTE | 2021-01-19 08:46 | PC.NURSE ---
cardizem gtt decreased to 5 mg. hr. d/t h.r. being in 60s and 70s.
--- NOTE | 2021-01-19 09:12 | ECG_ITS ---
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 Measurements Intervals Merlin Rate: 95 P: MO: QRS: 1 QRSD: 83 T: 27 QT: 367 QTc: 463 Interpretive Statements ATRIAL FIBRILLATION Compared to ECG 01/19/2021 05:52:38 Ventricular premature complex(es) no longer present Aberrant conduction of supraventricular beat(s) no longer present Electronically Signed On 01-19-2021 15:35:54 CDT by Miguel Barrera M.D. [email or web address] HQturning point mature adult care unitKudos Knowledgemercy health [facility].[employer]/store/OM/[id number]/[id number]
[2021-01-19 09:40] LABS: Troponin 5 6HR 16.42 ng/L (0-15)
[2021-01-19 09:43] LABS: Troponin 5 6HR Delta -6.58 ng/L (0-12)
--- NOTE | 2021-01-19 10:48 | PC.NURSE ---
0900 meds not given d/t pt. taking his home meds in e.d. this am around 0500.
--- NOTE | 2021-01-19 12:09 | PC.NURSE ---
dr. velez called re: po diltiazem. orders to turn cardiazem off. will monitor.
--- NOTE | 2021-01-19 12:37 | PC.NURSE ---
resting quietly. heart rate in 70s.
[2021-01-19 12:51] LABS: Glucose Point of Care 96 mg/dL (70-110)
--- NOTE | 2021-01-19 14:29 | P.PN_ITS ---
Subjective Subjective: Interval history: Patient presented to ER with respiratory distress, found to have afib with rvr as well as systolic HR exacerbation Started on cardizem gtt and lasix. Margoth was feeling much better at the time of my eval, noted improvement in respiratory distress. Was off oxygen. No chest pain. Medications: Reviewed: Yes Vitals/I&O/Wt Last Vital Signs Temp 98.2 F 01/19/21 14:00 Pulse 110 H 01/19/21 14:00 Resp 16 01/19/21 14:00 BP 150/90 01/19/21 14:24 Pulse Ox 93 01/19/21 14:24 01/18/21 01/19/21 01/19/21 22:59 06:59 14:59 Intake Total 642.167 / 642.167 Output Total 2024 Balance -1382.833 / -1382.833 Weight last 48 hrs Weight 115.666 kg Physical Exam Narrative: EXAM NARRATIVE: General: Alert, Awake, oriented x 3 HEENT : Grossly unremarkable CVS: Irregularly irregular , no M/R/G Chest : Crackles at bases ABD: NT/ND Ext: No edema Data : 01/19/21 03:15 01/19/21 03:15 Micro: Microbiology 01/19/21 03:50 Blood Culture - Preliminary Blood SPECIMEN COLLECTED 01/19/21 03:50 Blood Culture - Preliminary Blood SPECIMEN COLLECTED A&P Assessment and plan (1) Atrial fibrillation with RVR: Patient took his home dose of Cardizem 120 this am Rate improved Wean off cardizem gtt Cardizem dose increased to 240 daily - next dose in am Also continued on home dose of Metoprolol 100 mg PO BID Continue xarelto On tele Status: Acute (2) Acute on chronic systolic (congestive) heart failure: Recent ECHO noted Pulmonary vascular congestion S/p Lasix 60 mv IV x 1 in ER Will continue Lasix 40 mg IV BID Replace K as needed Daily weight Low NA diet Status: Acute (3) Hypertensive urgency: Improving Meds as above Resume Losartan 50 mg PO daily Continue to titrate as needed Status: Acute Attestations Medical Necessity Statement*: will require further hospitalization for management of heart failure exacerbation, AFib with RVR and hypertensive urgency Time Spent in Patient Care: Greater than 35 minutes (>than 50% of time spent in counselling and/or direct pt care on unit) . Coding Level of Care Code Acute Dispensary Technician for Richag Fwd Diagnoses Atrial fibrillation with RVR I48.91 Acute on chronic systolic (congestive) heart failure I50.23 Hypertensive urgency I16.0
[2021-01-19] MEDS: FUROsemide 10 mg/mL SDV 4mL 40 MG IVP (14:38)
[2021-01-19] MEDS: losartan 50 mg Tablet PO (14:45)
--- NOTE | 2021-01-19 14:51 | PC.NURSE ---
notified phys. of elevated b/p. orders noted.
--- NOTE | 2021-01-19 15:08 | PC.NURSE ---
pt. states he feels like he can breath better with oxygen on
[2021-01-19] MEDS: rivaroxaban 10 mg Tablet 20 MG PO (17:11)
[2021-01-19 17:21] LABS: Glucose Point of Care 163 mg/dL (70-110)
[2021-01-19] MEDS: metoprolol succinate ER (24 HR) 100 mg Tablet PO (17:59)
--- NOTE | 2021-01-19 18:36 | PC.NURSE ---
b/p consistently on the high side today. states its normal for him to run 150s over upper 90s-100s some b/ps done manually vs nibp.
[2021-01-19 21:31] LABS: Glucose Point of Care 109 mg/dL (70-110)
[2021-01-20] VITALS (25 sets, daily range): BP systolic 118–165; BP diastolic 75–121; PULSE 56–139; RESP 18–34; TEMP 35.9–36.6; O2SAT 90–95; BMI 31.6
--- NOTE | 2021-01-20 03:48 | PC.NURSE ---
ASSUMING CARE 1900 Patient up in room and on 1.5 L oxygen nasal cannula. Patient has nothing running intravenously. IV cardizem shut off in AM on day shift as reported by Eufemia Rey RN. Patient is alert and oriented x 4 and denies any needs at this time.
[2021-01-20] MEDS: FUROsemide 10 mg/mL SDV 4mL 40 MG IVP (04:49)
--- NOTE | 2021-01-20 06:26 | PC.NURSE ---
SHIFT SUMMARY Patient resting in bed most of night and up ad bertha in room to use urinal. Patient wearing 2L of oxygen when up in room and RA in bed with no issues. Tachycardia to 120-130s when up in room, but controlled atrial fibrillation while at rest. Shortness of breath seems decreased throughout the night as compared to when oncoming shift. Remained alert and oriented and has had about 1200 mL urine output.
[2021-01-20 06:31] LABS: Anion Gap 14.4 (5-19); Blood Urea Nitrogen 19 mg/dL (8-23); Calcium 8.9 mg/dL (8.5-10.5); Carbon Dioxide 28 mmol/L (22-29); Chloride 101 mmol/L (98-107); Glucose 157 mg/dL (65-115); Magnesium 1.6 mg/dL (1.7-2.3); Osmolality Calculated 296 mOsm/kg (285-295); Potassium 3.4 mmol/L (3.5-5.1); Sodium 140 mmol/L (136-145)
--- NOTE | 2021-01-20 06:42 | PC.NURSE ---
POTASSIUM/MAG Dr. Corbett notified of magnesium and potassium levels this morning. No new orders at this time.
[2021-01-20 07:40] LABS: Glucose Point of Care 164 mg/dL (70-110)
[2021-01-20] MEDS: aspirin 81 mg EC Tablet PO (08:16)
[2021-01-20] MEDS: pantoprazole DR 40 mg Tablet PO (08:16)
[2021-01-20] MEDS: metoprolol tartrate 50 mg Tablet 100 MG PO ×2 (08:19→20:19)
[2021-01-20] MEDS: dilTIAZem ER (24HR) 240 mg Capsule PO (08:23)
[2021-01-20] MEDS: losartan 50 mg Tablet PO (08:23)
--- NOTE | 2021-01-20 08:48 | P.PN_ITS ---
Subjective Subjective: Interval history: Reports that this morning he is doing all right. Denies chest pain or pressure. Denies shortness of breath at rest. Does state that he could probably make it to walk a short distance, however, any prolonged steps would make him tired, dyspneic. Vitals/I&O/Wt Last Vital Signs Temp 96.7 F L 01/20/21 05:07 Pulse 96 01/20/21 08:00 Resp 23 H 01/20/21 08:00 BP 147/115 01/20/21 08:00 Pulse Ox 90 01/20/21 08:00 01/19/21 01/20/21 01/20/21 22:59 06:59 14:59 Intake Total 480 / 1122.167 240 / 1362.167 360 / 360 Output Total 1000 / 3025 1200 / 4225 1225 / 1225 Balance -520 / -1902.833 -960 / -2862.833 -865 / -865 Weight last 48 hrs Weight 113.988 kg Weight 115.666 kg Physical Exam Const: COMMON NORMALS: no acute distress and patient oriented x3 GENERAL APPEARANCE: cooperative and comfortable HENMT: COMMON NORMALS: oropharynx normal Neck/C-Spine: COMMON NORMALS: no JVD Resp: COMMON NORMALS: normal respiratory effort and clear to auscultation bilaterally AUSCULTATION: clear to auscultation bilaterally Cardio: COMMON NORMALS: no JVD, regular rhythm, S1 normal heart sound present, S2 normal heart sound present and No murmurs present (Cardio) RHYTHM: regular rhythm HEART SOUNDS: S1 normal heart sound present and S2 normal heart sound present GI: COMMON NORMALS: Normal to inspection, nondistended, normoactive bowel sounds present, Soft to palpation and non-tender PALPATION: Yes Soft to palpation Extremity: COMMON NORMALS: no joint enlargement GENERAL: Yes edema (trace) Neuro: COMMON NORMALS: patient oriented x3 and moves all extremities Skin: COMMON NORMALS: no rashes or lesions noted GENERAL SKIN EXAM: no rashes or lesions noted Data : 01/19/21 03:15 01/20/21 05:27 Micro: Microbiology 01/19/21 03:50 Blood Culture - Preliminary Blood NEGATIVE TO DATE 01/19/21 03:50 Blood Culture - Preliminary Blood NEGATIVE TO DATE A&P Assessment and plan (1) Atrial fibrillation with RVR: Heart rates appear to remain above 100. This morning they are closer to 115-20 prior to receiving his morning medications. Discussed with him we will go ahead and change his metoprolol to tartrate dose twice daily. Continue Cardizem at increased dose 240 mg ER formulation. Replace hypokalemia and hypomagnesemia. Continue to monitor on telemetry. Denies any chest pain or pressure. Moved to CSU when bed is available, is as overflow in ICU. Continue xarelto Status: Acute (2) Acute on chronic systolic (congestive) heart failure: He has been diuresing well, -3.7 L last 24 hours. Denies shortness of breath. Saturating in the low 90s on room air. Baseline weight is somewhat difficult to establish, but appears to be close or somewhat below. Continue IV diuretic for today. Change to Q24h Replace K and Mg Daily weight Low NA diet Status: Acute (3) Hypertensive urgency: Variable. Monitor for now with current therapy regimen. Status: Acute Additional A&P Information Full code Consistent carb diet for type 2 diabetes with moderate dose sliding scale DVT prophylaxis not indicated Attestations Medical Necessity Statement*: Requiring admission of 40 midnights for assessment management of atrial fibrillation with persistent RVR, acute CHF exacerbation. Coding Level of Care Code Acute Educational Therapy Teacher for Emily Betancourt Diagnoses Atrial fibrillation with RVR I48.91 Acute on chronic systolic (congestive) heart failure I50.23 Hypertensive urgency I16.0
--- NOTE | 2021-01-20 11:12 | PC.NURSE ---
home 02 eval done. feels his breathing is better than admission.
[2021-01-20] MEDS: potassium chloride ER 10 mEq Tablet PO ×2 (12:04→12:05)
[2021-01-20] MEDS: magnesium sulfate premix 2 GM/50 ML PIGGYBACK IV (12:05)
--- NOTE | 2021-01-20 12:06 | PC.CHAP ---
Pastoral Care Encounter/Spiritual Assessment Type of Contact [] Declined anesthesia associate visit [] Patient/Family/Request visit [] Outpatient visit [x] Follow-up visit [] Physician referral [] Code/Alert [] Routine visit [] Staff referral [] Actively dying [x] Patient sleeping [] Family support [] [] Out of room [] Palliative care [] [] Receiving care in room [] Pre-surgical visit [] Trauma [] Long length of stay [] ICU visit [] Other: Relational/Emotional Strength [] Patient feels connected with others/family/visitors/staff [] Distress [] Loneliness/isolation [] Abandonment Spirituality of Patient [] Person of Faina [] Attends Gnosticist of their Faina [] Believes in Prayer [] Reads Bible or Shinto materials [] There are Spiritual issues to be addressed Dinkey Driver Interventions [] Prayer [] Active listening [] Non-anxious presence [] Spiritual/emotional support [] Crisis/trauma care [] Spiritual counseling [] Bereavement support [] Provided bereavement packet [] Provided Bible/devotional materials [] Provided toy/stuffed animal, coloring book to patient or family member [] Provided Communion [] Anointing/[place] [] Salvation [] Completed spiritual assessment [] Other: Impact on Illness or Injury [] Angry [] Fearful [] Anxious [] Often cries [] Exhaustion [] Unable to work [] Unable to attend gnosticism [] Unable to walk/stand [] Unable to read [] Unable to drive [] Unable to eat/drink [] Unable to sleep [] Unable to be with family [] Patient intubated [] Other: Summary Time spent with patient
--- NOTE | 2021-01-20 12:07 | PC.CHAP ---
Pastoral Care Encounter/Spiritual Assessment Type of Contact [] Declined floor director visit [] Patient/Family/Request visit [] Outpatient visit [x] Follow-up visit [] Physician referral [] Code/Alert [] Routine visit [] Staff referral [] Actively dying [x] Patient sleeping [] Family support [] [] Out of room [] Palliative care [] [] Receiving care in room [] Pre-surgical visit [] Trauma [] Long length of stay [] ICU visit [] Other: Relational/Emotional Strength [] Patient feels connected with others/family/visitors/staff [] Distress [] Loneliness/isolation [] Abandonment Spirituality of Patient [] Person of Faina [] Attends Cheondoism of their Faina [] Believes in Prayer [] Reads Bible or Confucianist materials [] There are Spiritual issues to be addressed Restrictive Preparation Operator Interventions [] Prayer [] Active listening [] Non-anxious presence [] Spiritual/emotional support [] Crisis/trauma care [] Spiritual counseling [] Bereavement support [] Provided bereavement packet [] Provided Bible/devotional materials [] Provided toy/stuffed animal, coloring book to patient or family member [] Provided Communion [] Anointing/[place] [] Salvation [] Completed spiritual assessment [] Other: Impact on Illness or Injury [] Angry [] Fearful [] Anxious [] Often cries [] Exhaustion [] Unable to work [] Unable to attend shinto [] Unable to walk/stand [] Unable to read [] Unable to drive [] Unable to eat/drink [] Unable to sleep [] Unable to be with family [] Patient intubated [] Other: Summary Time spent with patient
[2021-01-20] MEDS: potassium chloride ER 20 mEq Tablet PO (12:59)
--- NOTE | 2021-01-20 13:02 | PC.NURSE ---
pot. 10 meq was given with other am meds., apparently scan wasnt saved.
--- NOTE | 2021-01-20 14:26 | PC.NURSE ---
doing better. h.r. and b/p down. watching t.v. with .
[2021-01-20 16:45] LABS: Glucose Point of Care 189 mg/dL (70-110)
[2021-01-20 16:45] LABS: Glucose Point of Care 124 mg/dL (70-110)
[2021-01-20] MEDS: rivaroxaban 10 mg Tablet 20 MG PO (17:04)
--- NOTE | 2021-01-20 20:07 | PC.NURSE ---
REPORT CALLED Report called to MARIAMA Saldivar in CSU. Patient will be going to [facility] 104. Patient is alert and oriented x 4, on room air and nothing intravenously running.
[2021-01-20 20:24] LABS: Glucose Point of Care 117 mg/dL (70-110)
[2021-01-21] VITALS (8 sets, daily range): BP systolic 122–143; BP diastolic 78–108; PULSE 71–96; RESP 16–20; TEMP 36.3–36.7; O2SAT 92–95
[2021-01-21 05:11] LABS: Anion Gap 13.1 (5-19); Blood Urea Nitrogen 23 mg/dL (8-23); Calcium 8.6 mg/dL (8.5-10.5); Carbon Dioxide 28 mmol/L (22-29); Chloride 101 mmol/L (98-107); Glucose 188 mg/dL (65-115); Magnesium 1.7 mg/dL (1.7-2.3); Osmolality Calculated 295 mOsm/kg (285-295); Potassium 4.1 mmol/L (3.5-5.1); Sodium 138 mmol/L (136-145)
[2021-01-21] MEDS: FUROsemide 10 mg/mL SDV 4mL 40 MG IVP (06:31)
[2021-01-21 07:01] LABS: Glucose Point of Care 169 mg/dL (70-110)
[2021-01-21] MEDS: metoprolol tartrate 50 mg Tablet 100 MG PO (08:17)
[2021-01-21] MEDS: dilTIAZem ER (24HR) 240 mg Capsule PO (08:18)
[2021-01-21] MEDS: losartan 50 mg Tablet PO (08:18)
[2021-01-21] MEDS: pantoprazole DR 40 mg Tablet PO (08:18)
[2021-01-21] MEDS: aspirin 81 mg EC Tablet PO (08:19)
[2021-01-21 12:00] LABS: Glucose Point of Care 122 mg/dL (70-110)
--- NOTE | 2021-01-21 16:53 | PC.NURSE ---
Patient educated on discharge instructions and follow up appointments. Patient and both had no questions or concerns. Patient VS stable upon departure, IV removed with pressure held x5min and pressure dressing applied.
--- NOTE | 2021-01-21 16:57 | P.DS_ITS ---
Discharge Providers Date of Admission: 01/20/21 08:53 Date of Discharge: January 21, 2021 Attending Provider at Admission: Tasha Corbett MD Attending Provider at Discharge: Luis Crowell Primary Care Provider: Trevin Veliz DO Diagnoses at Discharge Discharge Diagnosis (1) Atrial fibrillation with RVR: Status: Acute (2) Acute on chronic systolic (congestive) heart failure: Status: Acute (3) Hypertensive urgency: Status: Acute Reason for Visit Reason for Visit: difficulty breathing Hospital Course Hospital Course Very pleasant 70-year-old gentleman with history of paroxysmal atrial fibrillation, CHF, previously EF 33%, diabetes, hypertension, was admitted due to worsening shortness of breath on 01/19. Recently was admitted on 12/23-12/26 for management of A. fib with RVR and congestive heart failure, assessed also by stress testing with finding of fixed area of perfusion abnormality without acute ischemia. Was discharged with metoprolol and Cardizem as well as Xarelto. He shortness of breath did not improve, however, and progressively got worse. On admission noted to be in acute CHF exacerbation, also A. fib with RVR heart rates in the 180s. Was treated with Cardizem drip, continue metoprolol. Was weaned off drip to oral Cardizem. Metoprolol dosing was changed from 100 mg twice daily ER to metoprolol tartrate 100 mg twice daily which did a better job controlling his heart rates. His blood pressures remained stable with Cardizem 240 CD daily, metoprolol tartrate 100 mg twice daily. CHF was treated with IV diuresis with Lasix. His weight came down to or somewhat below his baseline. He is feeling much better. He has been getting up and around. Since his heart rate is much better controlled, he feels ready to discharge from hospital to follow-up with cardiology in office. He will continue on metoprolol tartrate 100 mg twice daily, Cardizem 240 mg daily. Continue Xarelto. We will continue also with 40 mg oral Lasix daily until re evaluation. Please adjust diuretic based on volume status and renal function. Hypertension at this time is well controlled with Cardizem, Toprol, losartan. Due to this his HCTZ dose is decreased to 12.5 mg daily. Please reassess blood pressure and hypertensive regimen at next visit. Physical Exam Const: COMMON NORMALS: no acute distress, patient oriented x3 and alert GENERAL APPEARANCE: cooperative and comfortable ORIENTATION/CONSCIOUSNESS: Yes awake OTHER: He is doing well. Denies any chest pain or pressure. Has been up and about since early this morning. No lightheadedness or dizziness. No trouble walking. HENMT: COMMON NORMALS: oropharynx normal Neck/C-Spine: COMMON NORMALS: no JVD Resp: COMMON NORMALS: normal respiratory effort and clear to auscultation bilaterally AUSCULTATION: clear to auscultation bilaterally Cardio: COMMON NORMALS: no JVD, S1 normal heart sound present, S2 normal heart sound present and No murmurs present (Cardio) RHYTHM: abnormal rhythm irregularly irregular HEART SOUNDS: S1 normal heart sound present and S2 normal heart sound present GI: COMMON NORMALS: Normal to inspection, nondistended, normoactive bowel sounds present, Soft to palpation and non-tender PALPATION: Yes Soft to palpation Extremity: COMMON NORMALS: no joint enlargement and no pedal edema GENERAL: Yes edema (trace) Neuro: COMMON NORMALS: patient oriented x3 and moves all extremities SENSORIUM/ORIENTATION: Yes alert Skin: COMMON NORMALS: no rashes or lesions noted GENERAL SKIN EXAM: no rashes or lesions noted Discharge Data Data Completed and Pending: Completed Studies During Hospitalization Category Date Time Status XR chest 1V yeny ble [id number] Urgent Exams 01/19/21 03:11 Completed Pending at discharge Category Date Time Status Blood Culture Sta t Lab 01/19/21 03:50 Results Labs from last 24 hours 01/21/21 01/21/21 01/21/21 11:23 06:47 04:33 Sodium 138 Potassium 4.1 Chloride 101 Carbon Dioxide 28 Anion Gap 13.1 BUN 23 Creatinine 1.0 GFR Calculation Not Reportable Glucose 188 H POC Glucose 122 H 169 H Calculated Osmolal ity 295 Calcium 8.6 Magnesium 1.7 01/20/21 20:17 Sodium Potassium Chloride Carbon Dioxide Anion Gap BUN Creatinine GFR Calculation Glucose POC Glucose 117 H Calculated Osmolal ity Calcium Magnesium Vitals: Last Vital Signs Temp 97.3 F L 01/21/21 15:42 Pulse 71 01/21/21 15:42 Resp 16 01/21/21 15:42 BP 122/92 01/21/21 15:42 Pulse Ox 94 01/21/21 15:42 Discharge Plan Discharge Patient Disposition: Home Condition: Stable Prescriptions: New metoprolol tartrate 50 mg Tablet 100 mg PO BID@0900,2100 Qty: 60 RF: 0 diltiazem HCl 240 mg Capsule,Extended Release 24hr 240 mg PO DAILY Qty: 30 RF: 0 furosemide 40 mg tablet 40 mg PO DAILY Qty: 30 RF: 0 Continued Xarelto 20 mg tablet 20 mg PO DAILY RF: 0 losartan 50 mg tablet 50 mg PO DAILY@0500 RF: 0 metformin 1,000 mg tablet 1,000 mg PO BID@ RF: 0 omeprazole 20 mg capsule,delayed release(DR/EC) 20 mg PO DAILY@05 RF: 0 glipizide 5 mg tablet 5 mg PO BID@ RF: 0 aspirin 325 mg Tablet 325 - 650 mg PO Q6H PRN (Reason: pain/headache) RF: 0 aspirin 81 mg Tablet,Delayed Release (Dr/Ec) 81 mg PO DAILY@0800 RF: 0 Changed hydrochlorothiazide 25 mg tablet 12.5 mg PO DAILY@0500 Qty: 0 RF: 0 Discontinued metoprolol succinate 100 mg tablet extended release 24 hr 100 mg PO DAILY@0500 RF: 0 amlodipine 10 mg tablet 10 mg PO DAILY@0500 RF: 0 diltiazem HCl [DILT-XR] 180 mg capsule,ext.rel 24h degradable 180 mg PO DAILY@0300 RF: 0 Discharge Orders: Discharge Order (Routine); Ordered 01/21/21 Ordered By: Luis Crowell Referrals: Trevin Veliz DO [Primary Care Provider] - 4-7 days (YOU HAVE A FOLLOW UP APPOINMENT WITH ON WednesdayJanuary AT 0900. IF YOU HAVE QUESTIONS OR NEED TO RESCHEDULE PLEASE CALL [phone].) Radha Cartagena FNP [Nurse Practitioner] - 1 week (YOU HAVE A FOLLOW UP APPOINTMENT WITH RADHA CARTAGENA ON WednesdayJanuary AT 1030. IF YOU HAVE ANY QUESTIONS OR NEED TO RESCHEDULE PLEASE CALL [phone].) Cindy Menchaca MD [Physician] - 1 month (YOU HAVE A FOLLOW UP APPOINTMENT WITH DR. MENCHACA ON WednesdayFebruary AT 1030. IF YOU HAVE ANY QUESTIONS OR NEED TO RESCHEDULE PLEASE CALL [phone].) Discharge Diet: Cardiac, Diabetic and Low Salt Discharge Activity: Increase activity as tolerated Patient Instructions: Metoprolol (By mouth), Diltiazem (By mouth), Furosemide (By mouth), Atrial Fibrillation (DC), Hypertension (DC), CHF Stoplight, Opioid Safety Activity Restrictions/Additional Instructions: Please continue to monitor blood pressures at home 3 times daily, write down values to bring to your appointment. If blood pressures continue to rise, increase the dose of HCTZ back to 25 mg. Do not resume amlodipine together with diltiazem as these are too similar medications. If blood pressures continue to rise, contact your primary care or cardiology office. Please follow-up with your primary care doctor with regards to Lasix dose on follow-up for congestive heart failure. Your primary care doctor may adjust your diuretic dose. Measure your weight daily. In case you notice you are getting more than 3 pounds in 2 days, getting a lot more edema in your legs, getting short of breath laying flat or walking about, please take an extra dose of Lasix, contact your ocular care technologist or primary care doctor's office. Please continue to monitor your pulse rate at home 3 times daily, write down values as well. If you notice your heart rates are getting above 110, even after resting after an activity, please contact your ocular care technologist's office. If heart rates persist above 130, you experience chest pain or pressure, severe shortness of breath, lightheadedness, fainting, or any other concerning symptoms, please seek medical attention without delay. Discharge Attestations Time Spent in Discharge Care*: greater than 30 min Status at Discharge: Cognitive status at discharge: cognitively intact , Behavioral status at discharge: cooperative , Quality Metrics Clinical Quality Measures During this hospital stay, did patient experience: None Coding Level of Care Code Acute Chg FW DC note Diagnoses Atrial fibrillation with RVR I48.91 Acute on chronic systolic (congestive) heart failure I50.23 Hypertensive urgency I16.0
== END 2021-01-21 16:54 | disposition home or self-care (01) | DRG 308 ==
LOC: ER 05:34 → ICU 09:54 → CSU 01-20 20:32
PROVIDERS: Hospitalist; Admitting Provider Internal Medicine; Emergency Provider Emergency Medicine; PCP Family Medicine; Visit Provider Internal Medicine
DX: I48.91 Unspecified atrial fibrillation (principal); I50.23 Acute on chronic systolic (congestive) heart failure; I11.0 Hypertensive heart disease with heart failure; I16.0 Hypertensive urgency; E11.9 Type 2 diabetes mellitus without complications; Z85.47 Personal history of malignant neoplasm of testis; Z87.891 Personal history of nicotine dependence; E87.6 Hypokalemia; E83.42 Hypomagnesemia; Z79.01 Long term (current) use of anticoagulants; Z79.84 Long term (current) use of oral hypoglycemic drugs; Z79.82 Long term (current) use of aspirin
CPT/HCPCS: 36415; 36416; 36600; 71045; 80048; 80053; 82805; 82962; 83605; 83735; 83880; 84484; 85025; 87040; 93005; 94640; 96365; 96366; 96372; 96375; 99285; G0378; J1815; J1940; J3475; J3490; J7614

== ENCOUNTER → 2021-01-28 09:39 | Outpatient (BNVA) | payer MEDICARE, SELFPAY | PROVIDERS: PCP Family Medicine; Visit Provider Family Medicine | DX: I48.91 Unspecified atrial fibrillation (principal); Z09 Encounter for follow-up examination after completed treatment for conditions other than malignant neoplasm | CPT/HCPCS: 80053 ==

== ENCOUNTER → 2021-03-31 11:45 | Outpatient (BNVA) | payer MEDICARE, SELFPAY | PROVIDERS: PCP Family Medicine; Visit Provider Family Medicine | DX: E11.9 Type 2 diabetes mellitus without complications (principal); I48.91 Unspecified atrial fibrillation; I50.9 Heart failure, unspecified | CPT/HCPCS: 83036 ==

== ENCOUNTER 2021-05-14 11:46 | Outpatient (CLI) | payer MEDICARE, SELFPAY ==
[2021-05-14 12:20] VITALS: BP 147/84; PULSE 75; TEMP 36.7; O2SAT 98
[2021-05-14 12:50] VITALS: BP 149/80; PULSE 73; RESP 16; TEMP 36.6; O2SAT 95
[2021-05-14 13:17] VITALS: BP 150/76; PULSE 80; TEMP 36.5; O2SAT 96
== END 2021-05-14 14:09 | disposition home or self-care (01) ==
PROVIDERS: PCP Family Medicine; Visit Provider Family Medicine
DX: U07.1 COVID-19 (principal); I48.91 Unspecified atrial fibrillation; I11.0 Hypertensive heart disease with heart failure; I50.9 Heart failure, unspecified; E11.9 Type 2 diabetes mellitus without complications
CPT/HCPCS: 96365

== ENCOUNTER → 2021-08-18 08:58 | Outpatient (BNVA) | payer MEDICARE, SELFPAY | PROVIDERS: PCP Family Medicine; Visit Provider Family Medicine | DX: E11.9 Type 2 diabetes mellitus without complications (principal) | CPT/HCPCS: 83036 ==

== ENCOUNTER → 2022-01-09 10:02 | Outpatient (BNVA) | payer MEDICARE, SELFPAY | PROVIDERS: PCP Family Medicine; Visit Provider Internal Medicine Cardiovascular Disease | DX: I11.0 Hypertensive heart disease with heart failure (principal); I48.91 Unspecified atrial fibrillation; I50.9 Heart failure, unspecified; E11.9 Type 2 diabetes mellitus without complications; Z87.891 Personal history of nicotine dependence; Z79.84 Long term (current) use of oral hypoglycemic drugs; Z79.01 Long term (current) use of anticoagulants; Z79.82 Long term (current) use of aspirin | CPT/HCPCS: 99214 ==

== ENCOUNTER → 2022-08-24 10:50 | Outpatient (BNVA) | payer MEDICARE, SELFPAY | PROVIDERS: PCP Family Medicine; Visit Provider Family Medicine | DX: E11.9 Type 2 diabetes mellitus without complications (principal); J32.9 Chronic sinusitis, unspecified; I10 Essential (primary) hypertension | CPT/HCPCS: 83036 ==

== ENCOUNTER → 2022-10-13 13:35 | Outpatient (BNVA) | payer MEDICARE, SELFPAY | PROVIDERS: PCP Family Medicine; Visit Provider Internal Medicine Cardiovascular Disease | DX: I48.91 Unspecified atrial fibrillation (principal); Z79.01 Long term (current) use of anticoagulants; I11.0 Hypertensive heart disease with heart failure; I50.9 Heart failure, unspecified; Z87.891 Personal history of nicotine dependence | CPT/HCPCS: 99214; Q3014 ==

== ENCOUNTER → 2023-08-25 10:17 | Outpatient (BNVA) | payer MEDICARE, SELFPAY | PROVIDERS: PCP Family Medicine; Visit Provider Family Medicine | DX: E11.9 Type 2 diabetes mellitus without complications (principal); I10 Essential (primary) hypertension; H60.91 Unspecified otitis externa, right ear | CPT/HCPCS: 83036 ==

== ENCOUNTER → 2023-10-13 10:53 | Outpatient (BNVA) | payer MEDICARE, SELFPAY | PROVIDERS: PCP Family Medicine; Visit Provider Family Medicine | DX: E11.9 Type 2 diabetes mellitus without complications (principal) | CPT/HCPCS: 83036 ==

== ENCOUNTER → 2023-10-18 08:52 | Outpatient (BNVA) | payer MEDICARE, SELFPAY | PROVIDERS: PCP Family Medicine; Visit Provider Family Medicine | DX: E11.9 Type 2 diabetes mellitus without complications (principal) | CPT/HCPCS: 80061 ==

== ENCOUNTER → 2023-11-15 09:53 | Outpatient (BNVA) | payer MEDICARE, SELFPAY | PROVIDERS: PCP Family Medicine; Visit Provider Family Medicine | DX: E11.9 Type 2 diabetes mellitus without complications (principal) | CPT/HCPCS: 83036 ==

== ENCOUNTER → 2023-12-28 10:38 | Outpatient (BNVA) | payer MEDICARE, SELFPAY | PROVIDERS: PCP Family Medicine; Visit Provider Internal Medicine Cardiovascular Disease | DX: R07.9 Chest pain, unspecified (principal); I48.91 Unspecified atrial fibrillation; I11.0 Hypertensive heart disease with heart failure; I50.9 Heart failure, unspecified; E11.9 Type 2 diabetes mellitus without complications; Z87.891 Personal history of nicotine dependence | CPT/HCPCS: 93005; 99214 ==

== ENCOUNTER → 2024-02-16 11:25 | Outpatient (BNVA) | payer MEDICARE, SELFPAY | PROVIDERS: PCP Family Medicine; Visit Provider Family Medicine | DX: E11.9 Type 2 diabetes mellitus without complications (principal) | CPT/HCPCS: 83036 ==

== ENCOUNTER → 2024-09-11 09:31 | Outpatient (BNVA) | payer MEDICARE, SELFPAY | PROVIDERS: PCP Family Medicine; Visit Provider Family Medicine | DX: I48.91 Unspecified atrial fibrillation (principal); E11.9 Type 2 diabetes mellitus without complications; E55.9 Vitamin D deficiency, unspecified; I11.0 Hypertensive heart disease with heart failure; I50.9 Heart failure, unspecified; R79.89 Other specified abnormal findings of blood chemistry; E83.42 Hypomagnesemia | CPT/HCPCS: 80053; 80061; 82043; 82306; 82607; 83036; 83721; 83735; 84443; 85025; G0103 ==

== ENCOUNTER 2025-05-10 12:12 | Outpatient (CLI) | payer MEDICARE, SELFPAY ==
--- NOTE | 2025-05-10 15:45 | US_ITS ---
WS: [id number] TESTICULAR ULTRASOUND HISTORY: Scrotal swelling. History of LEFT testicle cancer. COMPARISON: None available. TECHNIQUE: Real-time and color Doppler imaging utilized to perform a testicular ultrasound. Right testicle: 4.6 cm x 2.8 cm x 2.0 cm. Normal size and echogenicity. No mass or torsion. Normal color Doppler is present throughout. Systolic and diastolic velocities are both present. Moderate complex hydrocele. There are multiple cystic collections posterior to the testicle. These cysts appear to be within the wall of the scrotal. The largest is 3.3 x 1.4 x 2.3 cm. These are simple cyst. These may be tunica albuginea cysts. Very limited evaluation of the epididymis by color Doppler. Heterogeneous epididymis. Right epididymis: Limited evaluation. Left testicle: Status post LEFT orchiectomy. US/US scrotum [id number] IMPRESSION: 1. Status post LEFT orchiectomy. 2. No RIGHT testicular mass or torsion. 3. Small simple cyst in the posterior scrotum. The cyst may be in the wall of the scrotum. Consider tunica albuginea cysts which are benign. 4. Moderate complex RIGHT hydrocele.
== END 2025-05-10 12:13 | disposition home or self-care (01) ==
PROVIDERS: PCP Family Medicine; Visit Provider Family Medicine
DX: N43.3 Hydrocele, unspecified (principal); N50.89 Other specified disorders of the male genital organs; Z85.47 Personal history of malignant neoplasm of testis
CPT/HCPCS: 76870